=== PATIENT | female | born 1945 | race Caucasian/White ===

== ENCOUNTER → 2017-10-30 08:47 | Outpatient (CLI) | payer MEDICARE, SELFPAY ==
[2017-10-30 11:00] LABS: AST(SGOT) 16 U/L (15-37); Alanine Aminotransfer ALT/SGPT 24 U/L (13-56); Albumin, Serum 3.7 g/dL (3.2-5.0); Alkaline Phosphatase 71 U/L (45-117); Bilirubin, Direct 0.24 mg/dL (0.00-0.30); Cholesterol 119 mg/dL (200); Globulin 3.7 g/dL (2.2-4.2); High Density Lipoprotein 45 mg/dL; Protein, Total 7.4 g/dL (6.4-8.2); Triglycerides 144 mg/dL; Very Low Density Lipoprotein 29 mg/dL (5-40)
== END ==
PROVIDERS: Family Provider Family Medicine; PCP Family Medicine; Visit Provider Internal Medicine Cardiovascular Disease
DX: I48.0 Paroxysmal atrial fibrillation (principal); E11.9 Type 2 diabetes mellitus without complications; I10 Essential (primary) hypertension
CPT/HCPCS: 36415; 80061; 80076

== ENCOUNTER → 2019-02-23 09:54 | Outpatient (CLI) | payer MEDICARE, SELFPAY ==
[2019-02-23 08:44] VITALS: BMI 31.4
[2019-02-23 10:32] LABS: Anion Gap 7 (5-15); BUN 25 mg/dL (7-18); BUN/Creat Ratio 32.4 RATIO (10-20); Chloride 105 mmol/L (98-107); Creatinine, Serum 0.77 mg/dL (0.55-1.02); EST Glomerular Filtration Rate 78 mL/min (>60); Est Glom Filt Rate - Afr Amer 95 mL/min (>60); Glucose 93 mg/dL (74-106); Potassium 3.1 mmol/L (3.5-5.1); Sodium Level 143 mmol/L (136-145)
[2019-02-23 10:40] LABS: BNP,B-Type NATRIURETIC PEPTIDE 251.1 pg/mL (0-100)
== END ==
PROVIDERS: Family Provider Family Medicine; PCP Family Medicine; Referring Provider Internal Medicine Cardiovascular Disease; Visit Provider Internal Medicine Cardiovascular Disease
DX: R06.02 Shortness of breath (principal); I10 Essential (primary) hypertension
CPT/HCPCS: 36415; 80048; 83880

== ENCOUNTER → 2019-03-29 | Outpatient (CLI) | payer MEDICARE, SELFPAY ==
[2019-02-23 08:44] VITALS: BMI 31.4
--- NOTE | 2019-03-29 07:40 | ECHOD_ITS ---
Reason For Study: DYSNPNEA/SOB Procedure This was a 2D Doppler, Color Flow transthoracic echocardiogram. Exam performed in department. Left Ventricle Normal LV size. Left ventricular systolic function is lower limits of normal. The estimated ejection fraction is 50 %. No regional wall motion abnormalities noted. Right Ventricle Normal RV size. Normal systolic function. Atria Normal left atrium. Normal right atrium. Mitral Valve Normal mitral valve. Tricuspid Valve Normal tricuspid valve. Mild to moderate (1-2+) tricuspid valve insufficiency. Pulmonary artery systolic pressure is 48 mmHg. Mild pulmonary hypertension. Aortic Valve The aortic valve is not well visualized. Pulmonic Valve Normal pulmonic valve. Great Vessels Normal aortic root. The pulmonary artery is normal size. Normal inferior vena cava. Pericardium/Pleural No pericardial effusion. MMode/2D Measurements & Calculations LVIDd: 4.5 cm IVSd: 1.1 cm Ao root diam: 3.0 cm LVIDs: 3.1 cm LVPWd: 1.1 cm RVDd: 3.0 cm FS: 30.9 % LAV(MOD-bp): 40.6 ml LA A4 area: 14.7 cm2 LA dimension(2D): 3.6 cm LAV(MOD-bp) Indexed: 21.1 ml/m2 LAV(MOD-sp2): 40.4 ml LAV(MOD-sp4): 40.1 ml RA A4 area: 13.5 cm2 Time Measurements MV dec time: 0.20 sec Doppler Measurements & Calculations MV E max abundio: 111.2 cm/sec Lat Peak E' Abundio: 9.7 cm/sec Med Peak E' Abundio: 5.9 cm/sec MV A max abundio: 82.6 cm/sec E/E' lat: 11.5 E/E' med: 18.7 MV E/A: 1.3 Ao V2 max: 127.7 cm/sec LV V1 max: 73.5 cm/sec PA V2 max: 90.3 cm/sec Ao max P.5 mmHg LV V1 max P.2 mmHg TR max abundio: 325.7 cm/sec TR max P.4 mmHg Interpretation Summary Normal LV size. Left ventricular systolic function is lower limits of normal. The estimated ejection fraction is 50 %. Pulmonary artery systolic pressure is 48 mmHg. Mild pulmonary hypertension. Compared to prior study, there is no significant change. Ordering Physician: Jerzy Mon Referring Physician: Sherri Hernandez Performed By: Yennifer De Leon, ROSE, RVT
== END | disposition home or self-care (01) ==
LOC: CVS 07:39
PROVIDERS: Family Provider Family Medicine; PCP Family Medicine; Referring Provider Internal Medicine Cardiovascular Disease; Visit Provider Internal Medicine Cardiovascular Disease
DX: I48.0 Paroxysmal atrial fibrillation (principal)
CPT/HCPCS: 93306

== ENCOUNTER → 2019-05-25 | Outpatient (CLI) | payer MEDICARE, SELFPAY ==
[2019-02-23 08:44] VITALS: BMI 31.4
[2019-05-25 14:49] LABS: Absolute Lymphocyte Count 2.68 X10^3/uL (0.83-4.51); Absolute Neutrophil Count 7.2 X10^3/uL (2.0-7.7); Basophil# 0.05 X10^3/uL; Basophil% 0.4 % (0-1); Eosinophil# 0.55 X10^3/uL; Eosinophils% 4.8 % (0-5); Hematocrit 43.2 % (37-47); Hemoglobin 13.7 g/dL (12.0-15.0); Lymphocyte # 2.68 X10^3/ul (4.0); Lymphocyte % 23.2 % (19-41); Mean Corp Hgb Conc 31.7 g/dL (32-36); Mean Corpuscular Hgb 28.3 pg (27.0-32.0); Mean Corpuscular Volume 89.3 fL (81-99); Mean Platelet Vol. 10.3 fl (6.2-12.0); Monocyte# 1.02 X10^3/uL; Monocyte% 8.8 % (0-10); NRBC Flagged by Analyzer 0 % (0-5); Neutrophil # 7.22 X10^3/uL (2.7-7.7); Neutrophil % 62.5 % (47-70); Platelet Count 235 K/mm3 (150-450); RBC Distribution Width CV 13.5 % (11.6-14.6); RBC Distribution Width SD 43.9 fl (35.1-43.9); Red Blood Count 4.84 M/mm3 (4.2-5.4); White Blood Count 11.6 K/mm3 (4.4-11.0)
== END | disposition home or self-care (01) ==
LOC: LAB 13:47
PROVIDERS: Family Provider Family Medicine; PCP Family Medicine; Referring Provider Internal Medicine Pulmonary Disease; Visit Provider Internal Medicine Pulmonary Disease
DX: J44.9 Chronic obstructive pulmonary disease, unspecified (principal); G47.33 Obstructive sleep apnea (adult) (pediatric)
CPT/HCPCS: 36415; 85025

== ENCOUNTER → 2020-09-16 07:29 | Outpatient (CLI) | payer MEDICARE, SELFPAY ==
[2020-09-07 10:03] VITALS: BMI 29.0
--- NOTE | 2020-09-16 07:33 | MRI_ITS ---
STUDY: MRI BRAIN WITH AND WITHOUT CONTRAST REASON FOR EXAM: Female, 75 years old. BENIGN MENINGIOMA -- recheck, no new symptoms, occasional davis TECHNIQUE: Standardized multiplanar fat and water weighted pulse sequences were obtained. Dotarem 15ml IV was administered for the contrast portion of the examination. COMPARISON: CT head without contrast 03/30/2015. FINDINGS: No restricted diffusion to suspect acute or subacute ischemic infarct. Solid enhancing meningioma behind the left parieto-occipital fissure. It is adjacent the posterior superior sagittal sinus without invasion obliteration of the patent superior sagittal sinus. No vasogenic edema of the adjacent brain parenchyma. Normal ventricles and cisterns. Scattered T2 FLAIR hyperintensity foci in the white matter of both cerebral hemispheres are chronic white matter ischemic changes.. Normal bilateral basal ganglia. Normal thalami. There is no extra-axial fluid accumulation. Normal flow voids within the major intracranial circulation suggesting patency by spin echo criteria. Normal venous enhancement. There is no enhancing intra-axial or extra-axial abnormality. Normal sella turcica, pituitary gland, infundibular stalk, optic chiasm and hypothalamus. Normal tectal plate and pineal gland. Normal midbrain, rosemarie and medulla. Normal cerebellum. Normal basal cisterns. Normal bilateral temporal bones. Normal bilateral internal auditory canals. No demonstrated orbital abnormality, within the constraints of a routine brain study. Normal visualized paranasal sinuses. Normal calvarium and skull base. Normal visualized soft tissue structures. Normal visualized upper cervical spine. MRI/Brain W/WO Contrast IMPRESSION: 1. 1.3 x 1.2 x 1.2 cm solid enhancing left posterior parafalcine meningioma near the left parieto-occipital fissure and without compromise or obliteration of the patent adjacent superior sagittal sinus. 2. Chronic white matter ischemic changes in both cerebral hemispheres. Electronically Signed: Ad Renae MD at 12:00 EST , Service support ,
[2020-09-16 08:26] LABS: Creatinine, Serum 1.04 mg/dL (0.55-1.02); EST Glomerular Filtration Rate 55 mL/min (>60); Est Glom Filt Rate - Afr Amer 67 mL/min (>60)
[2020-09-18 20:07] LABS: Free Kappa Light Chains 18.2 mg/L (3.3-19.4); Free Lambda Light Chains 20.5 mg/L (5.7-26.3)
== END ==
PROVIDERS: PCP Family Medicine; Referring Provider Psychiatry & Neurology Neurology; Visit Provider Psychiatry & Neurology Neurology
DX: D32.0 Benign neoplasm of cerebral meninges (principal); Z87.820 Personal history of traumatic brain injury; G62.9 Polyneuropathy, unspecified
CPT/HCPCS: 36415; 70553; 82565; 82746; 83883; A9575

== ENCOUNTER → 2021-03-30 09:14 | Outpatient (CLI) | payer MEDICARE, SELFPAY ==
[2021-03-30 08:27] VITALS: BMI 25.0
--- NOTE | 2021-03-30 09:18 | RAD_ITS ---
STUDY: X-RAY CHEST REASON FOR EXAM: Female, 76 years old. SOB TECHNIQUE: PA and lateral views of the chest. COMPARISON: 10/17/2015 FINDINGS: The lungs are clear and expanded. There is no demonstrated pleural abnormality. Normal size heart. Normal mediastinum and amrit. Normal visualized pulmonary arteries. Normal visualized aortic arch and descending thoracic aorta. Normal visualized thoracic spine. Normal visualized ribs, clavicles, and shoulders. There is no demonstrated abnormality of the visualized soft tissue structures of the upper abdomen. RAD/Chest PA and Lateral IMPRESSION: Normal x-ray examination of the chest. Electronically Signed: Andre Yeboah MD at 10:49 EDT Tel , Service support ,
[2021-03-30 10:09] LABS: Absolute Lymphocyte Count 1.36 X10^3/uL (0.83-4.51); Absolute Neutrophil Count 6.1 X10^3/uL (2.0-7.7); Basophil# 0.04 X10^3/uL; Basophil% 0.5 % (0-1); Eosinophil# 0.63 X10^3/uL; Eosinophils% 7.1 % (0-5); Hemoglobin 10.3 g/dL (12.0-15.0); Lymphocyte # 1.36 X10^3/ul (0.83-4.51); Lymphocyte % 15.3 % (19-41); Mean Corp Hgb Conc 29.4 g/dL (32-36); Mean Corpuscular Hgb 25.2 pg (27.0-32.0); Mean Corpuscular Volume 85.8 fL (81-99); Mean Platelet Vol. 9.8 fl (6.2-12.0); Monocyte# 0.72 X10^3/uL; Monocyte% 8.1 % (0-10); NRBC Flagged by Analyzer 0 % (0-5); Neutrophil % 68.8 % (47-70); Platelet Count 259 K/mm3 (150-450); RBC Distribution Width CV 15.6 % (11.6-14.6); RBC Distribution Width SD 48.7 fl (35.1-43.9); Red Blood Count 4.08 M/mm3 (4.2-5.4); White Blood Count 8.9 K/mm3 (4.4-11.0)
[2021-03-30 10:31] LABS: BNP,B-Type NATRIURETIC PEPTIDE 263.9 pg/mL (0-100)
[2021-03-30 10:51] LABS: Anion Gap 7 (5-15); BUN 16 mg/dL (7-18); BUN/Creat Ratio 20.5 RATIO (10-20); Calcium,Total 8.7 mg/dL (8.5-10.1); Chloride 107 mmol/L (98-107); Creatinine, Serum 0.78 mg/dL (0.55-1.02); EST Glomerular Filtration Rate 77 mL/min (>60); Est Glom Filt Rate - Afr Amer 93 mL/min (>60); Glucose 83 mg/dL (74-106); Potassium 4.1 mmol/L (3.5-5.1); Sodium Level 140 mmol/L (136-145)
== END ==
PROVIDERS: PCP Family Medicine; Referring Provider Nurse Practitioner Family; Visit Provider Nurse Practitioner Family
DX: R05 Cough (principal); R06.00 Dyspnea, unspecified; E78.5 Hyperlipidemia, unspecified; I48.0 Paroxysmal atrial fibrillation; I10 Essential (primary) hypertension
CPT/HCPCS: 36415; 71046; 80048; 83880; 85025

== ENCOUNTER 2021-04-13 11:50 | Observation (INO) | payer MEDICARE, SELFPAY ==
[2021-04-10 13:57] VITALS: BMI 25.0
[2021-04-13] VITALS (18 sets, daily range): BP systolic 122–165; BP diastolic 60–107; PULSE 92–144; RESP 16–24; TEMP 36.6–37.1; O2SAT 88–99; BMI 25.4; BMI 25.7
--- NOTE | 2021-04-13 12:07 | EKG12_ITS ---
Test Reason : SOB Blood Pressure : / mmHG Vent. Rate : 092 BPM Atrial Rate : 153 BPM P-R Int : 000 ms QRS Dur : 080 ms QT Int : 380 ms P-R-T Axes : 000 063 046 degrees QTc Int : 469 ms Atrial fibrillation Low voltage QRS Abnormal ECG Confirmed by KEV MATA, NAZIA ([id number]), continuity editor SULEMA DRAKE ([id number]) on 04/16/2021 9:51:45 AM Referred By: MARQUIS Confirmed By:VICKY ANGULO MD
--- NOTE | 2021-04-13 12:07 | RAD_ITS ---
STUDY: X-RAY CHEST REASON FOR EXAM: Female, 76 years old. Dyspnea TECHNIQUE: Single AP portable view of the chest. COMPARISON: Comparison is made with prior study dated 03/30/2021. FINDINGS: EKG electrodes are seen. Mild degree of increased interstitial markings in the peripheral aspect of the lower lobes. This may represent mild interstitial edema. Follow-up is recommended. There is no demonstrated pleural abnormality. Normal size heart. Normal mediastinum and amrit. Normal visualized pulmonary arteries. There is atherosclerotic calcification of the aortic arch with tortuosity. Normal visualized thoracic spine. Normal visualized ribs, clavicles, and shoulders. There is no demonstrated abnormality of the visualized soft tissue structures of the upper abdomen. RAD/Chest 1 View (Portable) IMPRESSION: Findings suggestive of mild CHF. Electronically Signed: Cody Wong MD at 13:09 EDT , Service support ,
--- NOTE | 2021-04-13 12:08 | ED.VIS.DYS ---
HPI History of Present Illness Chief Complaint: Shortness of Breath Informant: patient and spouse/S.O. Narrative Narrative: 76-year-old female with history of COPD diabetes and paroxysmal atrial fibrillation presents the emergency room with 3 days duration of worsening dyspnea. She notes a change in cough with yellow sputum production which is different. She notes her dyspnea is worse with exertion. She chronically wears 2 L of home oxygen. She recently began Eliquis anticoagulation for her A. fib. She denies any fever. She notes a tightness in the chest. [facility] Medical History COPD (chronic obstructive pulmonary disease) Essential (primary) hypertension Hyperlipidemia Hypothyroidism Meningioma Obesity Obstructive sleep apnea Paroxysmal atrial fibrillation Secondary pulmonary arterial hypertension Subdural hematoma (2014) Thyroid cancer Type 2 diabetes mellitus Home Medications metformin 1,000 mg PO BIDCM 07/03/14 [History Last Taken 10/16/15] albuterol sulfate 1 puff INHALATION Q4H PRN PRN #1 inhaler 07/05/14 [Rx Last Taken Unknown] magnesium oxide 400 mg PO BID 02/06/15 [History Last Taken 10/16/15] levothyroxine 75 mcg PO DAILY@0600 #30 tab 02/28/15 [Rx Last Taken 10/16/15] aspirin 81 mg PO DAILY@0800 10/17/15 [History Last Taken 10/16/15] glipizide 5 mg tablet, extended release 24 hr 5 mg PO QDAY 12/19/17 [History Last Taken Unknown] atorvastatin 10 mg tablet 10 mg PO QHS #90 tab 06/22/18 [Rx Last Taken Unknown] amlodipine 10 mg tablet 10 mg PO DAILY 02/23/19 [History Last Taken Unknown] escitalopram oxalate 10 mg tablet 10 mg PO DAILY 02/29/20 [History Last Taken Unknown] albuterol sulfate 2.5 mg CONTINUOUS NEBULIZATION DAILY ml 09/07/20 [History Last Taken Unknown] azithromycin 250 mg tablet 250 mg PO DAILY tab 09/07/20 [History Last Taken Unknown] fluticasone furoate 200 mcg-vilanterol 25 mcg/dose inhalation powder 1 inh INHALATION DAILY 09/07/20 [History Last Taken Unknown] roflumilast 500 mcg tablet 500 mcg PO DAILY 09/07/20 [History Last Taken Unknown] tiotropium bromide 2.5 mcg/actuation mist for inhalation 2 inh INHALATION QAM 09/07/20 [History Last Taken Unknown] potassium chloride 20 mEq tablet,extended release 20 meq PO DAILY #90 tab 02/28/21 [Rx Last Taken Unknown] furosemide 40 mg tablet 40 mg PO DAILY #30 tab 03/30/21 [Rx Last Taken Unknown] apixaban 2.5 mg tablet 2.5 mg PO BID #60 tab 04/09/21 [Rx Last Taken Unknown] metoprolol tartrate 50 mg tablet 50 mg PO BID tab 04/09/21 [History Last Taken Unknown] cyanocobalamin (vitamin B-12) 2,500 mcg sublingual tablet 2,500 mcg PO DAILY tab 04/10/21 [History Last Taken Unknown] ergocalciferol (vitamin D2) 1,250 mcg (50,000 unit) capsule 1,250 mcg PO QWEEK cap 04/10/21 [History Last Taken Unknown] ferrous sulfate 325 mg (65 mg iron) tablet 325 mg PO DAILY tab 04/10/21 [History Last Taken Unknown] primidone 50 mg tablet 50 mg PO BID #60 tab 04/10/21 [Rx Last Taken Unknown] Allergy/AdvReac Type Severity Reaction Status Date / Time ceftriaxone sodium Allergy Hives Verified 04/13/21 11:51 [From Rocephin] doxycycline AdvReac Intermediate nausea Verified 04/13/21 11:51 codeine AdvReac Nausea Verified 04/13/21 11:51 Family History Brother Diabetes Brother Heart disease Brother Diabetes Heart disease Sister Heart disease Diabetes CVA (cerebral vascular accident) Surgical History History of cataract extraction History of subtotal thyroidectomy Hx of cholecystectomy Social History Smoking Status: Former smoker pack-years: 40 how long ago did patient quit smokin years ago alcohol intake: never substance use type: does not use caffeine: Yes Type: carbonated beverages Number of servings: 1 and tea Number of servings: 1 ROS ROS ED Constitutional Constitutional ED: Denies chills or weight loss Eyes Eyes: Denies change in vision or diplopia ENT ENT ED: Denies ear pain, rhinorrhea or sore throat Cardiovascular Cardiovascular: Denies chest pain, orthopnea, palpitations or racing heartbeat Respiratory/Chest Respiratory/Chest: Reports cough, dyspnea, dyspnea on exertion and sputum; Denies orthopnea Gastrointestinal Gastrointestinal: Denies abdominal pain, diarrhea, nausea or vomiting Genitourinary Genitourinary ED: Denies dysuria, hematuria or urinary frequency Musculoskeletal Musculoskeletal: Denies arthralgias or myalgias Integumentary Denies abscess or rash Neurologic Neurologic: Denies headache(s) or weakness Psychiatric Psychiatric: Denies anxiety, depression, suicidal ideation or suicidal thoughts Endocrine Endocrinology: Denies polydipsia, polyphagia or polyuria Allergic/Immunologic Allergic/Immunologic ED: Denies mouth swelling, tongue swelling or urticaria EXAM Physical Exam Const Vital Signs: 04/13/21 11:53 04/13/21 11:55 04/13/21 12:03 Temperature 97.8 F 97.8 F Temperature Source Temporal Temporal Pulse Rate 93 93 Respiratory Rate 22 H 22 H Respiratory Effort Short of Breath Labored Blood Pressure 165/91 H 165/91 H Blood Pressure Mean 115 115 Pulse Ox 95 95 Oxygen Delivery Method Nasal Cannula Nasal Cannula Nasal Cannula Oxygen Flow Rate (L/min) 2 2 04/13/21 12:41 04/13/21 12:55 04/13/21 13:01 Temperature 98 F Temperature Source Temporal Pulse Rate 93 96 92 Respiratory Rate 20 H 20 H 21 H Respiratory Effort Short of Breath Labored Accessory Muscle Use Retracting Blood Pressure 148/107 H Blood Pressure Mean 120 Pulse Ox 96 96 Oxygen Delivery Method Nasal Cannula Nasal Cannula Oxygen Flow Rate (L/min) 2 04/13/21 13:09 04/13/21 13:51 04/13/21 13:52 Temperature Temperature Source Pulse Rate 104 H 144 H Respiratory Rate Respiratory Effort Blood Pressure Blood Pressure Mean Pulse Ox 96 94 88 Oxygen Delivery Method Nasal Cannula Nasal Cannula Nasal Cannula Oxygen Flow Rate (L/min) 2 2 04/13/21 13:53 Temperature 98.7 F Temperature Source Temporal Pulse Rate 113 H Respiratory Rate 16 Respiratory Effort Blood Pressure 147/90 H Blood Pressure Mean 109 Pulse Ox 93 Oxygen Delivery Method Nasal Cannula Oxygen Flow Rate (L/min) 2 Positive well nourished and well developed General Appearance ED: well developed HEENT Reports normocephalic, head/scalp atraumatic and moist mucous membranes Eyes PERRL and EOMs intact bilaterally Neck no lymphadenopathy, supple and no JVD Resp normal respiratory effort Auscultation: wheezes and diminished lung sounds Cardio regular rate, regular rhythm and no murmurs GI normal to inspection, nondistended, normoactive bowel sounds and non-tender Palpation: soft Back/Spine no CVA tenderness and normal ROM Extremity normal to inspection General Extremety ED: Negative for edema General Extremity: Negative for edema Neuro oriented x3 and CN's II-XII intact bilaterally Sensorium / Orientation: alert Motor Exam: strength 5/5 throughout Psych mental status grossly normal Mood & Affect: Negative for depressed or tearful Skin no rashes or lesions noted and no wounds MDM MDM MDM Narrative Medical decision making narrative: Basic blood work was negative. My interpretation of the chest x-ray is no acute process. No infiltrate seen. Patient received 3 nebulizers and Solu-Medrol. Repeat examination shows slightly improved aeration of the lungs. With ambulation on 2 L she becomes tachycardic tachypneic and oxygen levels dropped to 88%. At this point I will speak with the hospitalist regarding admission Lab Data Attestation: I reviewed the patient's lab results. Labs: Laboratory Results - last 24 hr 04/13/21 04/13/21 04/13/21 12:20 12:20 12:20 WBC 7.3 RBC 3.77 L Hgb 9.6 L Hct 32.6 L MCV 86.5 MCH 25.5 L MCHC 29.4 L RDW Std Deviation 51.6 H RDW Coeff of Malik 16.9 H Plt Count 214 MPV 9.7 Immature Gran % (Auto) 0.400 Neut % (Auto) 74.8 H Lymph % (Auto) 11.7 L [place] % (Auto) 8.5 Eos % (Auto) 4.0 Baso % (Auto) 0.6 Absolute Neuts (auto) 5.4 Absolute Lymphs (auto) 0.85 Nucleated RBC % 0 Sodium 138 Potassium 4.7 Chloride 105 Carbon Dioxide 26.0 Anion Gap 7 BUN 15 Creatinine 0.82 Estim Creat Clear Calc 54.16 Est GFR (MDRD) Af Amer 87 Est GFR (MDRD) Non-Af 72 BUN/Creatinine Ratio 18.2 Glucose 103 Calcium 8.7 Troponin I High Sens 4.2 Radiography Diagnostic Testing: Radiology Impression Chest X-Ray 04/13/21 12:07 IMPRESSION: Findings suggestive of mild CHF. Electronically Signed: Cody Wong MD at 13:09 EDT , Service support , EKG Initial EKG: Attestation: I personally reviewed and interpreted this EKG as follows: Comments: EKG demonstrates atrial fibrillation at a rate of 92 bpm. No concerning features of ACS or ectopy Discharge Plan Dx/Rx/DC Orders Clinical Impression: Acute exacerbation of chronic obstructive pulmonary disease, Acute and chronic respiratory failure with hypoxia Disposition Disposition: Acute Care Hospital [facility]
[2021-04-13] MEDS: Ipratropium/Albuterol Sulfate 3 ML AMPUL.NEB INHALATION ×2 (12:27→19:45)
[2021-04-13] MEDS: MethylPREDNISolone 125 MG/2 ML Vial IV (12:30)
[2021-04-13] MEDS: Albuterol 2.5 MG/3 ML VIAL.NEB. INHALATION ×2 (12:34→13:00)
[2021-04-13 12:35] LABS: Absolute Lymphocyte Count 0.85 X10^3/uL (0.83-4.51); Absolute Neutrophil Count 5.4 X10^3/uL (2.0-7.7); Basophil# 0.04 X10^3/uL; Basophil% 0.6 % (0-1); Eosinophil# 0.29 X10^3/uL; Hematocrit 32.6 % (37-47); Hemoglobin 9.6 g/dL (12.0-15.0); Lymphocyte # 0.85 X10^3/ul (0.83-4.51); Lymphocyte % 11.7 % (19-41); Mean Corp Hgb Conc 29.4 g/dL (32-36); Mean Corpuscular Hgb 25.5 pg (27.0-32.0); Mean Corpuscular Volume 86.5 fL (81-99); Mean Platelet Vol. 9.7 fl (6.2-12.0); Monocyte# 0.62 X10^3/uL; Monocyte% 8.5 % (0-10); NRBC Flagged by Analyzer 0 % (0-5); Neutrophil # 5.44 X10^3/uL (2.7-7.7); Neutrophil % 74.8 % (47-70); Platelet Count 214 K/mm3 (150-450); RBC Distribution Width CV 16.9 % (11.6-14.6); RBC Distribution Width SD 51.6 fl (35.1-43.9); Red Blood Count 3.77 M/mm3 (4.2-5.4); White Blood Count 7.3 K/mm3 (4.4-11.0)
[2021-04-13 12:50] LABS: Troponin-I HS 4.2 pg/mL (3.0-53.7)
[2021-04-13 13:38] LABS: Anion Gap 7 (5-15); BUN 15 mg/dL (7-18); BUN/Creat Ratio 18.2 RATIO (10-20); Calcium,Total 8.7 mg/dL (8.5-10.1); Chloride 105 mmol/L (98-107); Creatinine, Serum 0.82 mg/dL (0.55-1.02); EST Glomerular Filtration Rate 72 mL/min (>60); Est Glom Filt Rate - Afr Amer 87 mL/min (>60); Estimated Creatinine Clearance 54.16 ml/min; Glucose 103 mg/dL (74-106); Potassium 4.7 mmol/L (3.5-5.1); Sodium Level 138 mmol/L (136-145)
--- NOTE | 2021-04-13 15:11 | HP.PCM.HOS_ITS ---
Documented by User: Angelica Cardenas NP, EDUCATION RESEARCH ANALYST-C 04/13/21 15:32 HPI - General General Date of Admission: 04/13/21 Date of Service: 04/13/21 Chief Complaint: shortness of breath HPI Narrative IRVING NEELY, is a 76 F who presents to the emergency room due to shortness of breath. Patient reports worsening shortness of breath over the past 3 days. Patient denies upper respiratory symptoms. Denies cough, fever, chills. Patient does note she is not able to lie flat due to worsening shortness of breath. Also reports worsening shortness of breath with activity. She chronically wears 2 L nasal cannula at home. She reports intermittent lower extremity swelling. Denies known weight gain. She has a past medical history of hypertension, type 2 diabetes mellitus, ISABEL on CPAP, paroxysmal atrial fibrillation, hypothyroidism, COPD with chronic hypoxic respiratory failure, depression, essential tremors. [facility] Medical History (Updated 04/13/21 @ 14:14 by Audrey Lewis) Anxiety Atrial fibrillation Chest pain COPD (chronic obstructive pulmonary disease) CPAP (continuous positive airway pressure) dependence Depression Diabetes Essential (primary) hypertension Former smoker GERD (gastroesophageal reflux disease) Hyperlipidemia Hypertension Hypothyroidism Meningioma Obesity Obstructive sleep apnea On home oxygen therapy Paroxysmal atrial fibrillation Secondary pulmonary arterial hypertension Sleep apnea Stroke/cerebrovascular accident Subdural hematoma (2014) Thyroid cancer Type 2 diabetes mellitus Home Medications metformin 1,000 mg PO BIDCM 07/03/14 [History Last Taken 04/13/21] albuterol sulfate 1 puff INHALATION Q4H PRN PRN #1 inhaler 07/05/14 [Rx Last Taken 04/13/21] magnesium oxide 400 mg PO QHS 02/06/15 [History Last Taken 04/12/21] aspirin 81 mg PO DAILY@0800 10/17/15 [History Last Taken 04/13/21] glipizide 5 mg tablet, extended release 24 hr 5 mg PO QDAY 12/19/17 [History L ast Taken 04/13/21] amlodipine 10 mg tablet 10 mg PO DAILY 02/23/19 [History Last Taken 04/13/21] escitalopram oxalate 10 mg tablet 10 mg PO DAILY 02/29/20 [History Last Taken 04/13/21] albuterol sulfate 2.5 mg CONTINUOUS NEBULIZATION DAILY ml 09/07/20 [History Last Taken 04/12/21] azithromycin 250 mg tablet 250 mg PO DAILY tab 09/07/20 [History Last Taken 04/13/21] fluticasone furoate 200 mcg-vilanterol 25 mcg/dose inhalation powder 1 inh INHALATION DAILY 09/07/20 [History Last Taken 04/13/21] roflumilast 500 mcg tablet 500 mcg PO QHS 09/07/20 [History Last Taken 04/12/21] tiotropium bromide 2.5 mcg/actuation mist for inhalation 2 inh INHALATION QAM 09/07/20 [History Last Taken 04/13/21] apixaban 2.5 mg tablet 2.5 mg PO BID #60 tab 04/09/21 [Rx Last Taken 04/13/21] metoprolol tartrate 50 mg tablet 50 mg PO DAILY tab 04/09/21 [History Last Taken 04/13/21] cyanocobalamin (vitamin B-12) 2,500 mcg sublingual tablet 2,500 mcg PO QHS tab 04/10/21 [History Last Taken 04/12/21] ergocalciferol (vitamin D2) 1,250 mcg (50,000 unit) capsule 1,250 mcg PO WE cap 04/10/21 [History Last Taken 04/11/21] ferrous sulfate 325 mg (65 mg iron) tablet 325 mg PO DAILY tab 04/10/21 [History Last Taken 04/13/21] atorvastatin 10 mg PO QHS 04/13/21 [History Last Taken 04/12/21] furosemide [Lasix] 40 mg PO DAILY 04/13/21 [History Last Taken 04/13/21] levothyroxine 75 mcg PO DAILY@0600 04/13/21 [History Last Taken 04/13/21] metoprolol tartrate 25 mg PO QHS 04/13/21 [History Last Taken 04/12/21] potassium chloride 20 meq PO DAILY 04/13/21 [History Last Taken 04/12/21] primidone 50 mg PO BID 04/13/21 [History Last Taken 04/13/21] Allergy/AdvReac Type Severity Reaction Status Date / Time ceftriaxone sodium Allergy Hives Verified 04/13/21 11:51 [From Rocephin] doxycycline AdvReac Intermediate nausea Verified 04/13/21 11:51 codeine AdvReac Nausea Verified 04/13/21 11:51 Family History (Updated 04/13/21 @ 15:17 by Angelica Cardenas NP, EDUCATION RESEARCH ANALYST-C) Brother Diabetes Brother Heart disease Brother Diabetes Heart disease Sister Heart disease Diabetes CVA (cerebral vascular accident) Mother COPD (chronic obstructive pulmonary disease) Father Heart disease Surgical History History of cataract extraction History of subtotal thyroidectomy Hx of cholecystectomy Social History Smoking Status: Former smoker pack-years: 40 how long ago did patient quit smokin years ago alcohol intake: never substance use type: does not use caffeine: Yes Type: carbonated beverages Number of servings: 1 and tea Number of servings: 1 ROS Constitutional Constitutional: Denies change in weight, chills, fatigue, fever(s) or weakness Cardiovascular Cardiovascular: Denies chest pain, edema, lightheadedness, palpitations or sync ope Respiratory/Chest Respiratory/Chest: Reports dyspnea, shortness of breath at rest and wheezing; Denies cough or productive cough Gastrointestinal Gastrointestinal: Denies abdominal pain, constipation, diarrhea, nausea or vomit ing Genitourinary Genitourinary: Denies burning urination, difficulty urinating, dysuria, hematuria, urinary frequency, urinary incontinence or urinary urgency Musculoskeletal Musculoskeletal: Denies back pain, joint pain or muscle weakness Integumentary Integumentary: Denies erythema, lesions, rash or wounds Neurologic Neurologic: Denies abnormal speech, confusion, dizziness, focal weakness, numbness, paresthesias, seizure-like activity or syncope Psychiatric Psychiatric: Denies anxiety or depression Hematologic/Lymphatic Hematologic/Lymphatic: Denies anemia, easy bleeding or easy bruising Allergic/Immunologic Allergic/Immunologic: Denies hives or asthma Vital Signs Vital Signs Vital Signs: 04/13/21 11:53 04/13/21 11:55 04/13/21 12:03 Temperature 97.8 F 97.8 F Temperature Source Temporal Temporal Pulse Rate 93 93 Respiratory Rate 22 H 22 H Respiratory Effort Short of Breath Labored Blood Pressure 165/91 H 165/91 H Blood Pressure Mean 115 115 Blood Pressure Source Blood Pressure Position Blood Pressure Location Pulse Ox 95 95 Oxygen Delivery Method Nasal Cannula Nasal Cannula Nasal Cannula Oxygen Flow Rate (L/min) 2 2 04/13/21 12:41 04/13/21 12:55 04/13/21 13:01 Temperature 98 F Temperature Source Temporal Pulse Rate 93 96 92 Respiratory Rate 20 H 20 H 21 H Respiratory Effort Short of Breath Labored Accessory Muscle Use Retracting Blood Pressure 148/107 H Blood Pressure Mean 120 Blood Pressure Source Blood Pressure Position Blood Pressure Location Pulse Ox 96 96 Oxygen Delivery Method Nasal Cannula Nasal Cannula Oxygen Flow Rate (L/min) 2 04/13/21 13:09 04/13/21 13:51 04/13/21 13:52 Temperature Temperature Source Pulse Rate 104 H 144 H Respiratory Rate Respiratory Effort Blood Pressure Blood Pressure Mean Blood Pressure Source Blood Pressure Position Blood Pressure Location Pulse Ox 96 94 88 Oxygen Delivery Method Nasal Cannula Nasal Cannula Nasal Cannula Oxygen Flow Rate (L/min) 2 2 04/13/21 13:53 04/13/21 14:19 04/13/21 14:46 Temperature 98.7 F 98.7 F 98.4 F Temperature Source Temporal Temporal Oral Pulse Rate 113 H 111 H 110 H Respiratory Rate 16 20 H 21 H Respiratory Effort Blood Pressure 147/90 H 165/60 H 144/93 H Blood Pressure Mean 109 95 110 Blood Pressure Source Monitor Blood Pressure Position Sitting Blood Pressure Location Right Arm Pulse Ox 93 94 94 Oxygen Delivery Method Nasal Cannula Nasal Cannula Nasal Cannula Oxygen Flow Rate (L/min) 2 2 Weight Weight: 154 lb 15.759 oz Body Mass Index (BMI) 25.7 Physical Exam Const alert, oriented x3 and no apparent distress Orientation / Consciousness: awake, oriented to person, oriented to place and oriented to time HEENT normocephalic and moist oral mucous membranes Eyes PERRL, EOMs intact bilaterally and conjunctivae normal Neck no lymphadenopathy Resp Auscultation: wheezes and diminished lung sounds Cardio regular rate, regular rhythm and no murmurs Peripheral Pulses: pulses 2+ throughout GI normal to inspection, nondistended, normoactive bowel sounds, non-tender and non -distended Extremity normal to inspection Skin no rashes or lesions noted Lesions: no lesions Rashes: no rashes Trauma: no lacerations or abrasions Neuro CN's II-XII intact bilaterally, no focal motor deficits, no sensory deficits noted and deep tendon reflexes 2+ bilaterally Psych mental status grossly normal and affect normal Results Lab / Micro Data Result Diagrams: 04/13/21 12:20 04/13/21 12:20 Labs: Laboratory Results - last 24 hr 04/13/21 12:20: WBC 7.3, RBC 3.77 L, Hgb 9.6 L, Hct 32.6 L, MCV 86.5, MCH 25.5 L , MCHC 29.4 L, RDW Std Deviation 51.6 H, RDW Coeff of Malik 16.9 H, Plt Count 214, MPV 9.7, Immature Gran % (Auto) 0.400, Neut % (Auto) 74.8 H, Lymph % (Auto) 11.7 L, [place] % (Auto) 8.5, Eos % (Auto) 4.0, Baso % (Auto) 0.6, Absolute Neuts (auto) 5.4, Absolute Lymphs (auto) 0.85, Nucleated RBC % 0 04/13/21 12:20: Troponin I High Sens 4.2 04/13/21 12:20: Sodium 138, Potassium 4.7, Chloride 105, Carbon Dioxide 26.0, Anion Gap 7, BUN 15, Creatinine 0.82, Estim Creat Clear Calc 54.16, Est GFR (MDRD) Af Amer 87, Est GFR (MDRD) Non-Af 72, BUN/Creatinine Ratio 18.2, Glucose 103, Calcium 8.7 Radiology Impression Chest X-Ray 04/13/21 12:07 IMPRESSION: Findings suggestive of mild CHF. Electronically Signed: Cody Wong MD at 13:09 EDT , Service support , Assessment & Plan Assessment/Plan (1) Acute exacerbation of chronic obstructive pulmonary disease: PLAN: 1. Acute exacerbation of chronic COPD with chronic hypoxic respiratory failure-on 2 L nasal cannula at baseline. Respiratory panel pending. IV Solu-Medrol. Albuterol and DuoNeb aerosols. Continue supplement oxygen to maintain O2 at or above 90%. Walking pulse ox prior to discharge. 2. Possible component of CHF-patient reports orthopnea. Chest x-ray shows mild CHF. BNP pending. Continue home Lasix regimen for now, if BNP is significantly elevated consider IV Lasix. Echocardiogram 2018 demonstrated an EF of 50%, pulmonary artery systolic pressure 48 mmHg. 3. Hypertension-stable, continue amlodipine, metoprolol. 4. Type 2 diabetes [id number] with sliding scale insulin. Continue oral regimen. 5. ISABEL on CPAP 6. Paroxysmal atrial fibrillation-on Eliquis, metoprolol. 7. Hypothyroidism-continue Synthroid regimen. 8. Depression-on escitalopram. 9. Essential tremors-following with neurology. DVT prophylaxis- Eliquis CODE STATUS: Discussed with patient differences between full code, DNR CCA and DNR CC. Patient elects DNR CCA CODE STATUS and does not want compressions or intubation. This patient was seen by FRANCIS Bailon under the supervision of Dr. Lee. Documented by User: Dr. Arturo Lee, DO 04/13/21 18:50 HPI - General General Date of Admission: 04/13/21 [facility] Medical History (Updated 04/13/21 @ 14:14 by Audrey Lewis) Anxiety Atrial fibrillation Chest pain COPD (chronic obstructive pulmonary disease) CPAP (continuous positive airway pressure) dependence Depression Diabetes Essential (primary) hypertension Former smoker GERD (gastroesophageal reflux disease) Hyperlipidemia Hypertension Hypothyroidism Meningioma Obesity Obstructive sleep apnea On home oxygen therapy Paroxysmal atrial fibrillation Secondary pulmonary arterial hypertension Sleep apnea Stroke/cerebrovascular accident Subdural hematoma (2014) Thyroid cancer Type 2 diabetes mellitus Home Medications metformin 1,000 mg PO BIDCM 07/03/14 [History Last Taken 04/13/21] albuterol sulfate 1 puff INHALATION Q4H PRN PRN #1 inhaler 07/05/14 [Rx Last Taken 04/13/21] magnesium oxide 400 mg PO QHS 02/06/15 [History Last Taken 04/12/21] aspirin 81 mg PO DAILY@0800 10/17/15 [History Last Taken 04/13/21] glipizide 5 mg tablet, extended release 24 hr 5 mg PO QDAY 12/19/17 [History Last Taken 04/13/21] amlodipine 10 mg tablet 10 mg PO DAILY 02/23/19 [History Last Taken 04/13/21] escitalopram oxalate 10 mg tablet 10 mg PO DAILY 02/29/20 [History Last Taken 04/13/21] albuterol sulfate 2.5 mg CONTINUOUS NEBULIZATION DAILY ml 09/07/20 [History Last Taken 04/12/21] azithromycin 250 mg tablet 250 mg PO DAILY tab 09/07/20 [History Last Taken 04/13/21] fluticasone furoate 200 mcg-vilanterol 25 mcg/dose inhalation powder 1 inh INHALATION DAILY 09/07/20 [History Last Taken 04/13/21] roflumilast 500 mcg tablet 500 mcg PO QHS 09/07/20 [History Last Taken 04/12/21] tiotropium bromide 2.5 mcg/actuation mist for inhalation 2 inh INHALATION QAM 09/07/20 [History Last Taken 04/13/21] apixaban 2.5 mg tablet 2.5 mg PO BID #60 tab 04/09/21 [Rx Last Taken 04/13/21] metoprolol tartrate 50 mg tablet 50 mg PO DAILY tab 04/09/21 [History Last Taken 04/13/21] cyanocobalamin (vitamin B-12) 2,500 mcg sublingual tablet 2,500 mcg PO QHS tab 04/10/21 [History Last Taken 04/12/21] ergocalciferol (vitamin D2) 1,250 mcg (50,000 unit) capsule 1,250 mcg PO WE cap 04/10/21 [History Last Taken 04/11/21] ferrous sulfate 325 mg (65 mg iron) tablet 325 mg PO DAILY tab 04/10/21 [History Last Taken 04/13/21] atorvastatin 10 mg PO QHS 04/13/21 [History Last Taken 04/12/21] furosemide [Lasix] 40 mg PO DAILY 04/13/21 [History Last Taken 04/13/21] levothyroxine 75 mcg PO DAILY@0600 04/13/21 [History Last Taken 04/13/21] metoprolol tartrate 25 mg PO QHS 04/13/21 [History Last Taken 04/12/21] potassium chloride 20 meq PO DAILY 04/13/21 [History Last Taken 04/12/21] primidone 50 mg PO BID 04/13/21 [History Last Taken 04/13/21] Allergy/AdvReac Type Severity Reaction Status Date / Time ceftriaxone sodium Allergy Hives Verified 04/13/21 11:51 [From Rocephin] doxycycline AdvReac Intermediate nausea Verified 04/13/21 11:51 codeine AdvReac Nausea Verified 04/13/21 11:51 Family History (Updated 04/13/21 @ 15:17 by Angelica Cardenas EDUCATION RESEARCH ANALYST, EDUCATION RESEARCH ANALYST-C) Brother Diabetes Brother Heart disease Brother Diabetes Heart disease Sister Heart disease Diabetes CVA (cerebral vascular accident) Mother COPD (chronic obstructive pulmonary disease) Father Heart disease Surgical History (Reviewed 04/13/21 @ 15:17 by Angelica Cardenas EDUCATION RESEARCH ANALYST, EDUCATION RESEARCH ANALYST-C) History of cataract extraction History of subtotal thyroidectomy Hx of cholecystectomy Social History (Reviewed 04/13/21 @ 15:17 by Angelica Cardenas EDUCATION RESEARCH ANALYST, EDUCATION RESEARCH ANALYST-C) Smoking Status: Former smoker pack-years: 40 how long ago did patient quit smokin years ago alcohol intake: never substance use type: does not use caffeine: Yes Type: carbonated beverages Number of servings: 1 and tea Number of servings: 1 Results Lab / Micro Data Result Diagrams: 04/13/21 12:20 04/13/21 12:20 Charges/Coding Addendum Addendum: Patient was seen and examined today independently of Angelica Cardenas, she came to the ER today at [facility] with complaints of shortness of breath, she denies any fevers or chills. Work-up in the emergency room included a chest x-ray which indicated changes suggestive of CHF, patient's white blood cell count was normal, and her chemistry profile was unremarkable. Patient had a beta natruretic peptide drawn which was elevated. On examination she appeared in good health and spirits, she does not appear to be in any distress. Vital signs as documented. Skin warm and dry and without overt rashes. Neck without JVD, thyroid appears normal, trachea is midline, neck is supple. Lungs-lungs are clear bilaterally although breath sounds are extremely diminished bilaterally. No expiratory rhonchi rales or wheezes were n oted.. Heart exam notable for regular rhythm, normal sounds and absence of murmurs, rubs or gallops. Abdomen unremarkable and without evidence of organomegaly, masses, or abdominal aortic enlargement, bowel sounds are present in all 4 quadrants, no abdominal tenderness was noted. Extremities nonedematous, no cyanosis was noted, no clubbing was noted. Neuro: Cranial nerves II through XII are grossly intact, no focal motor deficits were noted, sensation to light touch and pinprick is intact, motor exam 5/5 throughout. Psych: Patient is alert and oriented x3, she does not appear anxious or depressed, she does not appear agitated. Patient does have a history of chronic obstructive pulmonary disease and is on home O2 chronically, I think it is luna to treat her for CHF in light of the fact that her beta natruretic peptide is elevated and she is got changes on her chest x-ray suggestive of mild CHF. In addition, I will treat her for an exacerbation of COPD, echocardiogram will be performed tomorrow, and her oxygen will be monitored. I have reviewed Angelica Cardenas's history and physical including her medical assessment and plan of care and with the above additions endorse it. I talked to her third grade teacher Dr. West by phone today and he will see her during her hospitalization. Visit Charges OBSV E&M: 36932 Initial observation care L3
[2021-04-13 16:01] LABS: BNP,B-Type NATRIURETIC PEPTIDE 388.2 pg/mL (0-100)
--- NOTE | 2021-04-13 16:08 | ECHOD_ITS ---
Reason For Study: CHF Procedure This was a 2D Doppler, Color Flow transthoracic echocardiogram. Exam performed portable in patient room. Left Ventricle Normal LV size. The estimated ejection fraction is 60 %. Normal diastology for age. No regional wall motion abnormalities noted. Right Ventricle Normal RV size. Atria Normal left atrium. Normal right atrium. No doppler evidence for ASD. Mitral Valve There is no mitral valve stenosis. Trivial mitral valve insufficiency. Tricuspid Valve There is no tricuspid stenosis. Mild tricuspid valve insufficiency. Pulmonary artery systolic pressure is 50-55 mmHg. Aortic Valve Trisinus/trileaflet aortic valve. There is no aortic stenosis. No aortic valve insufficiency. Pulmonic Valve There is no pulmonic valvular stenosis. No pulmonic valve insufficiency. Great Vessels Normal aortic root. Pericardium/Pleural No pericardial effusion. MMode/2D Measurements & Calculations LVIDd: 4.2 cm IVSd: 1.2 cm Ao root diam: 2.6 cm LVIDs: 3.0 cm LVPWd: 0.83 cm RVDd: 3.7 cm FS: 28.1 % LAV(MOD-bp): 34.2 ml LVAd ap4: 19.9 cm2 LVAd ap2: 19.0 cm2 LAV(MOD-bp) Indexed: 19.5 ml/m2 LVLd ap4: 6.6 cm LVLd ap2: 6.4 cm LAV(MOD-sp2): 31.4 ml EDV(MOD-sp4): 50.3 ml EDV(MOD-sp2): 47.9 ml LAV(MOD-sp4): 34.2 ml EDV(sp4-el): 51.1 ml EDV(sp2-el): 47.3 ml LVAs ap4: 11.1 cm2 LVAs ap2: 11.2 cm2 LVLs ap4: 5.9 cm LVLs ap2: 5.8 cm ESV(MOD-sp4): 18.5 ml ESV(MOD-sp2): 18.8 ml ESV(sp4-el): 17.7 ml ESV(sp2-el): 18.5 ml EF(MOD-sp4): 63.3 % EF(MOD-sp2): 60.6 % EF(sp4-el): 65.4 % SV(MOD-sp4): 31.8 ml SV(MOD-sp2): 29.0 ml SV(sp4-el): 33.4 ml LA dimension(2D): 3.5 cm LA A4 area: 13.9 cm2 RA A4 area: 15.6 cm2 Doppler Measurements & Calculations MV E max karmen: 123.8 cm/sec Ao V2 max: 143.5 cm/sec LV V1 max: 98.3 cm/sec Ao max P.3 mmHg LV V1 max P.9 mmHg Ao V2 mean: 99.9 cm/sec Ao mean P.4 mmHg Ao V2 VTI: 24.7 cm PA V2 max: 89.9 cm/sec TR max karmen: 338.7 cm/sec TR max P.9 mmHg ECHO/Echo Complete Interpretation Summary The estimated ejection fraction is 60 %. Normal diastology for age. Trivial mitral valve insufficiency. Mild tricuspid valve insufficiency. Pulmonary artery systolic pressure is 50-55 mmHg. Ordering Physician: Angelica Cardenas Referring Physician: Sherri Hernandez Performed By: Komal Bright RDCS, RVT
[2021-04-13] MEDS: 0.9% Saline Lock 10 ML Syringe IV ×2 (16:49→22:58)
[2021-04-13] MEDS: Furosemide 40 MG/4 ML Vial IV (16:49)
[2021-04-13 16:56] LABS: Bedside Glucose 157 mg/dL (70-110)
[2021-04-13] MEDS: metFORMIN HCl 1,000 MG Tablet 1000 MG PO (16:58)
[2021-04-13] MEDS: Insulin Lispro 100 UNIT/ML INSULN.PEN SC ×2 (16:58→22:55)
[2021-04-13] MEDS: Potassium Chloride Oral Tablet 20 MEQ PO (20:49)
[2021-04-13] MEDS: Primidone 50 MG Tablet PO (22:56)
[2021-04-13] MEDS: Magnesium Chloride 64 MG Delay Rel.Tablet 128 MG PO (22:56)
[2021-04-13] MEDS: Atorvastatin Calcium 10 MG Tablet PO (22:56)
[2021-04-13] MEDS: APIXABAN 2.5 MG TABLET PO (22:56)
[2021-04-13] MEDS: Furosemide 40 MG Tablet PO (22:56)
[2021-04-13] MEDS: Metoprolol Tartrate 25 MG Tablet PO (22:57)
[2021-04-13 23:06] LABS: Bedside Glucose 165 mg/dL (70-110)
[2021-04-14] VITALS (7 sets, daily range): BP systolic 110–145; BP diastolic 68–86; PULSE 94–108; RESP 18–22; TEMP 36.8–37; O2SAT 94–98
[2021-04-14] MEDS: Insulin Lispro 100 UNIT/ML INSULN.PEN SC ×2 (06:36→11:51)
[2021-04-14] MEDS: Levothyroxine 75 MCG Tablet PO (06:36)
[2021-04-14] MEDS: 0.9% Saline Lock 10 ML Syringe IV (06:37)
[2021-04-14 06:55] LABS: Bedside Glucose 169 mg/dL (70-110)
[2021-04-14] MEDS: Ipratropium/Albuterol Sulfate 3 ML AMPUL.NEB INHALATION (07:23)
[2021-04-14] MEDS: metFORMIN HCl 1,000 MG Tablet 1000 MG PO (07:43)
[2021-04-14] MEDS: Aspirin 81 MG TAB.CHEW PO (07:44)
[2021-04-14] MEDS: Potassium Chloride Oral Tablet 20 MEQ PO ×2 (07:46→10:51)
[2021-04-14] MEDS: glipiZIDE XL 5 MG Tablet PO (07:47)
--- NOTE | 2021-04-14 09:25 | RAD_ITS ---
STUDY: X-RAY CHEST REASON FOR EXAM: Female, 76 years old. Hypoxia TECHNIQUE: Single AP portable view of the chest. COMPARISON: None. FINDINGS: Lower spine. Otherwise the lungs are clear and expanded. There is no demonstrated pleural abnormality. Normal size heart. Normal mediastinum and amrit. Normal visualized pulmonary arteries. There is atherosclerotic calcification of the aortic arch with tortuosity. There are diffuse degenerative changes of the visualized thoracic spine. Normal visualized ribs, clavicles, and shoulders. There is no demonstrated abnormality of the visualized soft tissue structures of the upper abdomen. RAD/Chest PA and Lateral IMPRESSION: No acute cardiopulmonary disease. Possible nodularity anterior to the spine, recommend follow-up with CT chest in nonacute setting. Electronically Signed: Francia Collins MD at 2:20 EDT , Service support ,
[2021-04-14 10:00] LABS: Absolute Lymphocyte Count 0.43 X10^3/uL (0.83-4.51); Absolute Neutrophil Count 14.2 X10^3/uL (2.0-7.7); Basophil# 0.02 X10^3/uL; Basophil% 0.1 % (0-1); Hematocrit 33.5 % (37-47); Hemoglobin 10.1 g/dL (12.0-15.0); Lymphocyte # 0.43 X10^3/ul (0.83-4.51); Lymphocyte % 2.8 % (19-41); Mean Corp Hgb Conc 30.1 g/dL (32-36); Mean Corpuscular Hgb 26.1 pg (27.0-32.0); Mean Corpuscular Volume 86.6 fL (81-99); Monocyte# 0.49 X10^3/uL; Monocyte% 3.2 % (0-10); NRBC Flagged by Analyzer 0 % (0-5); Neutrophil # 14.17 X10^3/uL (2.7-7.7); Neutrophil % 93.2 % (47-70); POSITIVE DIFFERENTIAL YES; Platelet Count 271 K/mm3 (150-450); RBC Distribution Width CV 17.1 % (11.6-14.6); RBC Distribution Width SD 51.5 fl (35.1-43.9); Red Blood Count 3.87 M/mm3 (4.2-5.4); White Blood Count 15.2 K/mm3 (4.4-11.0)
[2021-04-14 10:21] LABS: Anion Gap 12 (5-15); BUN 26 mg/dL (7-18); BUN/Creat Ratio 21.5 RATIO (10-20); Calcium,Total 8.9 mg/dL (8.5-10.1); Chloride 99 mmol/L (98-107); Creatinine, Serum 1.21 mg/dL (0.55-1.02); EST Glomerular Filtration Rate 46 mL/min (>60); Est Glom Filt Rate - Afr Amer 56 mL/min (>60); Glucose 248 mg/dL (74-106); Sodium Level 137 mmol/L (136-145)
[2021-04-14 10:24] LABS: Differential Indicated SCAN CRITERIA MET
[2021-04-14 10:25] LABS: Differential Comment SCANNED
[2021-04-14] MEDS: Magnesium Chloride 64 MG Delay Rel.Tablet 128 MG PO (10:49)
[2021-04-14] MEDS: Escitalopram Oxalate 10 MG Tablet PO (10:50)
[2021-04-14] MEDS: Metoprolol Tartrate 50 MG Tablet PO (10:50)
[2021-04-14] MEDS: Furosemide 40 MG Tablet PO (10:51)
[2021-04-14] MEDS: APIXABAN 2.5 MG TABLET PO (10:51)
[2021-04-14] MEDS: amLODIPine 10 MG Tablet PO (10:52)
[2021-04-14] MEDS: Azithromycin 250 MG Tablet PO (10:52)
[2021-04-14] MEDS: Primidone 50 MG Tablet PO (10:52)
--- NOTE | 2021-04-14 11:19 | PCM.DC ---
Discharge Instructions Diet Discharge Diet: 8 Cup Fluid Restriction and 2000 mg Sodium Diet Activity Discharge Activity: Return to Normal Activity Dressing / Incision Call your doctor if you observe: Shortness of breath, Dizziness and Chest pain Follow Up Care Test Results: Test results from this visit will be discussed in further detail at your follow-up appointment, if applicable. Discharge Plan Admission Admit Date/Time: 04/13/21 14:19 Primary Reason for Your Visit: Heart failure, COPD Attending Provider: Arturo Lee Primary Care Provider: Sherri Hernandez Consulting Providers: Dustin West V Discharge Orders/Prescriptions Prescriptions: New prednisone 10 mg tablet See Rx Instructions .ROUTE .COMPLEX Qty: 10 RF: 0 Continued glipizide 5 mg tablet extended release 24 hr 5 mg PO QDAY RF: 0 azithromycin 250 mg tablet 250 mg PO DAILY RF: 0 Daliresp 500 mcg tablet 500 mcg PO QHS RF: 0 Spiriva Respimat 2.5 mcg/actuation mist 2 inh INHALATION QAM RF: 0 Breo Ellipta 200-25 mcg/dose blister with device 1 inh INHALATION DAILY RF: 0 albuterol sulfate 2.5 mg /3 mL (0.083 %) solution for nebulization 2.5 mg continuous nebulization DAILY RF: 0 ergocalciferol (vitamin D2) 1,250 mcg (50,000 unit) capsule 1,250 mcg PO WE RF: 0 cyanocobalamin (vitamin B-12) 2,500 mcg tablet, sublingual 2,500 mcg PO QHS RF: 0 ferrous sulfate 325 mg (65 mg iron) tablet 325 mg PO DAILY RF: 0 metformin 1,000 MG tablet 1,000 mg PO BIDCM RF: 0 albuterol sulfate 1 INHALER inhaler 1 puff INHALATION Q4H PRN PRN (Reason: Wheezing) Qty: 1 RF: 0 magnesium oxide 400 MG tablet 400 mg PO QHS RF: 0 escitalopram oxalate 10 mg tablet 10 mg PO DAILY RF: 0 aspirin 81 MG tablet,chewable 81 mg PO DAILY@0800 RF: 0 metoprolol tartrate 50 mg tablet 25 mg PO QHS RF: 0 primidone 50 mg tablet 50 mg PO BID RF: 0 atorvastatin 10 mg tablet 10 mg PO QHS RF: 0 levothyroxine 75 MCG tablet 75 mcg PO DAILY@0600 RF: 0 amlodipine 10 mg tablet 10 mg PO DAILY RF: 0 Eliquis 2.5 mg tablet 2.5 mg PO BID Qty: 60 RF: 12 metoprolol tartrate 50 mg tablet 50 mg PO DAILY RF: 0 Changed furosemide [Lasix] 40 mg tablet 40 mg PO BID Qty: 60 RF: 0 potassium chloride 20 mEq tablet extended release 20 meq PO BID Qty: 60 RF: 0 Referrals / Follow Up: Sherri Hernandez MD [Primary Care Provider] - In 1 Week Dustin West MD [STAFF PHYSICIAN] - Within 2 Weeks Josef Bright NP, [employer]-C [Nurse Practitioner] - See Referral Note (As scheduled 04/23/2021) Disposition Disposition (needs filled in before D/C Order can be placed): Home, Self Care
--- NOTE | 2021-04-14 11:26 | PCM.DC.SUM ---
Documented by User: Angelica Cardenas NP, K 9 HANDLER/ DEPUTY-C 04/14/21 14:07 Providers Date of Admission: 04/13/21 Date of Discharge: 04/14/21 Primary Care Physician: Dr. Sherri Hernandez MD Consultations 04/13/21 16:11 Consult: Traffic Survey Technician / Pulmonary Medicine Routine Consulting Provider: Dustin West V Reason for Consult: COPD EMERGENT Consult: No MD Notified: Yes Date Notified: 04/13/21 Time Notified: 16:12 Method of Notification: Verbal Reason For Visit: COPD EXACERBATION Diagnosis Discharge Diagnosis (1) Acute exacerbation of chronic obstructive pulmonary disease: Status: Chronic Code(s): J44.1 - Chronic obstructive pulmonary disease with (acute) exacerbation Medications at Discharge Home Medications metformin 1,000 mg PO BIDCM 07/03/14 albuterol sulfate 1 puff INHALATION Q4H PRN PRN #1 inhaler 07/05/14 magnesium oxide 400 mg PO QHS 02/06/15 aspirin 81 mg PO DAILY@0800 10/17/15 glipizide 5 mg tablet, extended release 24 hr 5 mg PO QDAY 12/19/17 amlodipine 10 mg tablet 10 mg PO DAILY 02/23/19 escitalopram oxalate 10 mg tablet 10 mg PO DAILY 02/29/20 albuterol sulfate 2.5 mg CONTINUOUS NEBULIZATION DAILY ml 09/07/20 azithromycin 250 mg tablet 250 mg PO DAILY tab 09/07/20 fluticasone furoate 200 mcg-vilanterol 25 mcg/dose inhalation powder 1 inh INHALATION DAILY 09/07/20 roflumilast 500 mcg tablet 500 mcg PO QHS 09/07/20 tiotropium bromide 2.5 mcg/actuation mist for inhalation 2 inh INHALATION QAM 09/07/20 apixaban 2.5 mg tablet 2.5 mg PO BID #60 tab 04/09/21 metoprolol tartrate 50 mg tablet 50 mg PO DAILY tab 04/09/21 cyanocobalamin (vitamin B-12) 2,500 mcg sublingual tablet 2,500 mcg PO QHS tab 04/10/21 ergocalciferol (vitamin D2) 1,250 mcg (50,000 unit) capsule 1,250 mcg PO WE cap 04/10/21 ferrous sulfate 325 mg (65 mg iron) tablet 325 mg PO DAILY tab 04/10/21 atorvastatin 10 mg PO QHS 04/13/21 levothyroxine 75 mcg PO DAILY@0600 04/13/21 metoprolol tartrate 25 mg PO QHS 04/13/21 primidone 50 mg PO BID 04/13/21 furosemide [Lasix] 40 mg PO BID #60 tab 04/14/21 potassium chloride 20 meq PO BID #60 tab 04/14/21 prednisone See Rx Instructions .ROUTE .COMPLEX #10 tab 04/14/21 Hospital Course Operations None Procedures 2-D Echocardiogram Summary of Care Provided Minutes Spent on Discharge: 35 Hospital Course: Patient is a 76-year-old female admitted 04/13/2021 due to shortness of breath. 1. Acute exacerbation of chronic COPD with chronic hypoxic respiratory failure-Mild exacerbation. On 2 L nasal cannula at baseline. IV Solu-Medrol during admission. Dr. West consulted during admission per patient request. Discharge on short prednisone burst. Follow with Dr. West in one week. 2. Acute heart failure with preserved ejection fraction- Chest x-ray shows mild CHF. BNP Elevated. Echocardiogram 2018 demonstrated an EF of 50%, pulmonary artery systolic pressure 48 mmHg. Repeat echo completed, report pending and will be reviewed prior to discharge. Lasix increased to 40 mg twice daily. Patient has upcoming follow-up with cardiology. 3. Hypertension-stable, continue amlodipine, metoprolol. 4. Type 2 diabetes mellitus-Continue oral regimen. 5. ISABEL on CPAP 6. Paroxysmal atrial fibrillation-on Eliquis, metoprolol. 7. Hypothyroidism-continue Synthroid regimen. 8. Depression-on escitalopram. 9. Essential tremors-following with neurology. Physical Exam Const alert, oriented x3 and no apparent distress Orientation / Consciousness: awake, oriented to person, oriented to place and oriented to time HEENT normocephalic and moist oral mucous membranes Eyes PERRL, EOMs intact bilaterally and conjunctivae normal Neck no lymphadenopathy Resp Auscultation: wheezes and diminished lung sounds Cardio regular rate, regular rhythm and no murmurs Peripheral Pulses: pulses 2+ throughout GI normal to inspection, nondistended, normoactive bowel sounds, non-tender and non-distended Extremity normal to inspection Skin no rashes or lesions noted Lesions: no lesions Rashes: no rashes Trauma: no lacerations or abrasions Neuro CN's II-XII intact bilaterally, no focal motor deficits, no sensory deficits noted and deep tendon reflexes 2+ bilaterally Psych mental status grossly normal and affect normal Patient seen and examined prior to discharge. Physical assessment as noted above. Patient is stable for discharge with follow up recommendations as noted above. This patient was seen by FRANCIS Bailon under the supervision of Dr. Lee. Weight / BMI Weight Weight: 154 lb 15.759 oz Body Mass Index (BMI) 25.7 ABG / Lab / Microbiology Data Result Diagrams: 04/14/21 09:40 04/14/21 09:40 Laboratory: Laboratory Results - last 24 hr 04/13/21 12:20: WBC 7.3, RBC 3.77 L, Hgb 9.6 L, Hct 32.6 L, MCV 86.5, MCH 25.5 L, MCHC 29.4 L, RDW Std Deviation 51.6 H, RDW Coeff of Malik 16.9 H, Plt Count 214, MPV 9.7, Immature Gran % (Auto) 0.400, Neut % (Auto) 74.8 H, Lymph % (Auto) 11.7 L, Mcpherson % (Auto) 8.5, Eos % (Auto) 4.0, Baso % (Auto) 0.6, Absolute Neuts (auto) 5.4, Absolute Lymphs (auto) 0.85, Nucleated RBC % 0 04/13/21 12:20: Troponin I High Sens 4.2 04/13/21 12:20: Sodium 138, Potassium 4.7, Chloride 105, Carbon Dioxide 26.0, Anion Gap 7, BUN 15, Creatinine 0.82, Estim Creat Clear Calc 54.16, Est GFR (MDRD) Af Amer 87, Est GFR (MDRD) Non-Af 72, BUN/Creatinine Ratio 18.2, Glucose 103, Calcium 8.7 04/13/21 12:20: B-Natriuretic Peptide 388.2 H 04/13/21 16:46: POC Glucose 157 H 04/13/21 22:54: POC Glucose 165 H 04/14/21 06:35: POC Glucose 169 H 04/14/21 09:40: WBC 15.2 H, RBC 3.87 L, Hgb 10.1 L, Hct 33.5 L, MCV 86.6, MCH 26.1 L, MCHC 30.1 L, RDW Std Deviation 51.5 H, RDW Coeff of Malik 17.1 H, Plt Count 271, MPV 10.0, Immature Gran % (Auto) 0.700, Neut % (Auto) 93.2 H, Lymph % (Auto) 2.8 L, Mcpherson % (Auto) 3.2, Eos % (Auto) 0.0, Baso % (Auto) 0.1, Absolute Neuts (auto) 14.2 H, Absolute Lymphs (auto) 0.43 L, Nucleated RBC % 0, Differential Comment SCANNED 04/14/21 09:40: Sodium 137, Potassium 4.0, Chloride 99, Carbon Dioxide 26.0, Anion Gap 12, BUN 26 H, Creatinine 1.21 H, Estim Creat Clear Calc 36.70, Est GFR (MDRD) Af Amer 56 L, Est GFR (MDRD) Non-Af 46 L, BUN/Creatinine Ratio 21.5 H, Glucose 248 H, Calcium 8.9 Radiography Diagnostic Testing: Radiology Impression Chest X-Ray 04/13/21 12:07 IMPRESSION: Findings suggestive of mild CHF. Electronically Signed: Cody Wong MD at 13:09 EDT , Service support , D/C Instructions Discharge Diet: 8 Cup Fluid Restriction and 2000 mg Sodium Diet Call your doctor if you observe: Shortness of breath, Dizziness and Chest pain Meaningful Use Info Meaningful Use Diagnoses (Choose all that apply): CHF CHF TRUDY/ARB ordered at discharge?: No Reason TRUDY/ARB not ordered?: Not indicated Documented LVEF (%): 50 Discharge Plan Admission Admit Date/Time: 04/13/21 14:19 Primary Reason for Your Visit: Heart failure, COPD Attending Provider: Arturo Lee Primary Care Provider: Sherri Hernandez Consulting Providers: Dustin West V Discharge Orders/Prescriptions Prescriptions: New prednisone 10 mg tablet See Rx Instructions .ROUTE .COMPLEX Qty: 10 RF: 0 Continued glipizide 5 mg tablet extended release 24 hr 5 mg PO QDAY RF: 0 azithromycin 250 mg tablet 250 mg PO DAILY RF: 0 Daliresp 500 mcg tablet 500 mcg PO QHS RF: 0 Spiriva Respimat 2.5 mcg/actuation mist 2 inh INHALATION QAM RF: 0 Breo Ellipta 200-25 mcg/dose blister with device 1 inh INHALATION DAILY RF: 0 albuterol sulfate 2.5 mg /3 mL (0.083 %) solution for nebulization 2.5 mg continuous nebulization DAILY RF: 0 ergocalciferol (vitamin D2) 1,250 mcg (50,000 unit) capsule 1,250 mcg PO WE RF: 0 cyanocobalamin (vitamin B-12) 2,500 mcg tablet, sublingual 2,500 mcg PO QHS RF: 0 ferrous sulfate 325 mg (65 mg iron) tablet 325 mg PO DAILY RF: 0 metformin 1,000 MG tablet 1,000 mg PO BIDCM RF: 0 albuterol sulfate 1 INHALER inhaler 1 puff INHALATION Q4H PRN PRN (Reason: Wheezing) Qty: 1 RF: 0 magnesium oxide 400 MG tablet 400 mg PO QHS RF: 0 escitalopram oxalate 10 mg tablet 10 mg PO DAILY RF: 0 aspirin 81 MG tablet,chewable 81 mg PO DAILY@0800 RF: 0 metoprolol tartrate 50 mg tablet 25 mg PO QHS RF: 0 primidone 50 mg tablet 50 mg PO BID RF: 0 atorvastatin 10 mg tablet 10 mg PO QHS RF: 0 levothyroxine 75 MCG tablet 75 mcg PO DAILY@0600 RF: 0 amlodipine 10 mg tablet 10 mg PO DAILY RF: 0 Eliquis 2.5 mg tablet 2.5 mg PO BID Qty: 60 RF: 12 metoprolol tartrate 50 mg tablet 50 mg PO DAILY RF: 0 Changed furosemide [Lasix] 40 mg tablet 40 mg PO BID Qty: 60 RF: 0 potassium chloride 20 mEq tablet extended release 20 meq PO BID Qty: 60 RF: 0 Referrals / Follow Up: Sherri Hernandez MD [Primary Care Provider] - In 1 Week Dustin West MD [STAFF PHYSICIAN] - Within 2 Weeks Josef Bright NP, K 9 HANDLER/ DEPUTY-C [Nurse Practitioner] - See Referral Note (As scheduled 04/23/2021) Disposition Disposition (needs filled in before D/C Order can be placed): Home, Self Care Documented by User: Dr. Arturo Lee DO 04/14/21 17:02 Providers Date of Admission: 04/13/21 Reason For Visit: COPD EXACERBATION Medications at Discharge Home Medications metformin 1,000 mg PO BIDCM 07/03/14 albuterol sulfate 1 puff INHALATION Q4H PRN PRN #1 inhaler 07/05/14 magnesium oxide 400 mg PO QHS 02/06/15 aspirin 81 mg PO DAILY@0800 10/17/15 glipizide 5 mg tablet, extended release 24 hr 5 mg PO QDAY 12/19/17 amlodipine 10 mg tablet 10 mg PO DAILY 02/23/19 escitalopram oxalate 10 mg tablet 10 mg PO DAILY 02/29/20 albuterol sulfate 2.5 mg CONTINUOUS NEBULIZATION DAILY ml 09/07/20 azithromycin 250 mg tablet 250 mg PO DAILY tab 09/07/20 fluticasone furoate 200 mcg-vilanterol 25 mcg/dose inhalation powder 1 inh INHALATION DAILY 09/07/20 roflumilast 500 mcg tablet 500 mcg PO QHS 09/07/20 tiotropium bromide 2.5 mcg/actuation mist for inhalation 2 inh INHALATION QAM 09/07/20 apixaban 2.5 mg tablet 2.5 mg PO BID #60 tab 04/09/21 metoprolol tartrate 50 mg tablet 50 mg PO DAILY tab 04/09/21 cyanocobalamin (vitamin B-12) 2,500 mcg sublingual tablet 2,500 mcg PO QHS tab 04/10/21 ergocalciferol (vitamin D2) 1,250 mcg (50,000 unit) capsule 1,250 mcg PO WE cap 04/10/21 ferrous sulfate 325 mg (65 mg iron) tablet 325 mg PO DAILY tab 04/10/21 atorvastatin 10 mg PO QHS 04/13/21 levothyroxine 75 mcg PO DAILY@0600 04/13/21 metoprolol tartrate 25 mg PO QHS 04/13/21 primidone 50 mg PO BID 04/13/21 furosemide [Lasix] 40 mg PO BID #60 tab 04/14/21 potassium chloride 20 meq PO BID #60 tab 04/14/21 prednisone See Rx Instructions .ROUTE .COMPLEX #10 tab 04/14/21 ABG / Lab / Microbiology Data Result Diagrams: 04/14/21 09:40 04/14/21 09:40 Discharge Plan Admission Admit Date/Time: 04/13/21 14:19 Primary Reason for Your Visit: Heart failure, COPD Attending Provider: Arturo Lee Primary Care Provider: Sherri Hernandez Consulting Providers: Dustin West V Discharge Orders/Prescriptions Prescriptions: New prednisone 10 mg tablet See Rx Instructions .ROUTE .COMPLEX Qty: 10 RF: 0 Continued glipizide 5 mg tablet extended release 24 hr 5 mg PO QDAY RF: 0 azithromycin 250 mg tablet 250 mg PO DAILY RF: 0 Daliresp 500 mcg tablet 500 mcg PO QHS RF: 0 Spiriva Respimat 2.5 mcg/actuation mist 2 inh INHALATION QAM RF: 0 Breo Ellipta 200-25 mcg/dose blister with device 1 inh INHALATION DAILY RF: 0 albuterol sulfate 2.5 mg /3 mL (0.083 %) solution for nebulization 2.5 mg continuous nebulization DAILY RF: 0 ergocalciferol (vitamin D2) 1,250 mcg (50,000 unit) capsule 1,250 mcg PO WE RF: 0 cyanocobalamin (vitamin B-12) 2,500 mcg tablet, sublingual 2,500 mcg PO QHS RF: 0 ferrous sulfate 325 mg (65 mg iron) tablet 325 mg PO DAILY RF: 0 metformin 1,000 MG tablet 1,000 mg PO BIDCM RF: 0 albuterol sulfate 1 INHALER inhaler 1 puff INHALATION Q4H PRN PRN (Reason: Wheezing) Qty: 1 RF: 0 magnesium oxide 400 MG tablet 400 mg PO QHS RF: 0 escitalopram oxalate 10 mg tablet 10 mg PO DAILY RF: 0 aspirin 81 MG tablet,chewable 81 mg PO DAILY@0800 RF: 0 metoprolol tartrate 50 mg tablet 25 mg PO QHS RF: 0 primidone 50 mg tablet 50 mg PO BID RF: 0 atorvastatin 10 mg tablet 10 mg PO QHS RF: 0 levothyroxine 75 MCG tablet 75 mcg PO DAILY@0600 RF: 0 amlodipine 10 mg tablet 10 mg PO DAILY RF: 0 Eliquis 2.5 mg tablet 2.5 mg PO BID Qty: 60 RF: 12 metoprolol tartrate 50 mg tablet 50 mg PO DAILY RF: 0 Changed furosemide [Lasix] 40 mg tablet 40 mg PO BID Qty: 60 RF: 0 potassium chloride 20 mEq tablet extended release 20 meq PO BID Qty: 60 RF: 0 Referrals / Follow Up: Sherri Hernandez MD [Primary Care Provider] - In 1 Week Dustin West MD [STAFF PHYSICIAN] - Within 2 Weeks Josef Bright K 9 HANDLER/ DEPUTY, K 9 HANDLER/ DEPUTY-C [Nurse Practitioner] - See Referral Note (As scheduled 04/23/2021) Disposition Disposition (needs filled in before D/C Order can be placed): Home, Self Care Charges/Coding Addendum Addendum: Patient was seen and examined independently of Angelica Cardenas today, she is breathing much better and she requires 2 L of oxygen on ambulation. I talked briefly with pulmonary medicine who saw her in consultation today and they felt that the patient's issue on admission was congestive heart failure. Patient's echocardiogram showed a normal EF today. Patient also had mild pulmonary hypertension. On examination she appeared in good health and spirits, she does not appear to be in any distress. Vital signs as documented. Skin warm and dry and without overt rashes. Neck without JVD, thyroid appears normal, trachea is midline, neck is supple. Lungs clear, normal air movement was noted. Heart exam notable for irregular rhythm, normal sounds and absence of murmurs, rubs or gallops. Abdomen unremarkable and without evidence of organomegaly, masses, or abdominal aortic enlargement, bowel sounds are present in all 4 quadrants, no abdominal tenderness was noted. Extremities nonedematous, no cyanosis was noted, no clubbing was noted. Neuro: Cranial nerves II through XII are grossly intact, no focal motor deficits were noted, sensation to light touch and pinprick is intact, motor exam 5/5 throughout. Psych: Patient is alert and oriented x3, she does not appear anxious or depressed, she does not appear agitated. Patient appears stable for discharge at this time, I have reviewed Angelica Ronald's discharge summary including her medical assessment and plan of care and endorse it. Visit Charges OBSV E&M: 61503 Observation care discharge
[2021-04-14] MEDS: Ferrous Sulfate 325 MG Tablet PO (11:52)
[2021-04-14 12:01] LABS: Bedside Glucose 193 mg/dL (70-110)
--- NOTE | 2021-04-14 13:00 | CASEMGMT ---
RN CM GASOLINE SERVICE ATTENDANT CM to room to meet with patient for initial transition planning/care coordination assessment. RN CARLEEN introduced self and role at [facility]. Pt voices understanding and consents to assessment at this time. Pt resting in bed in no distress at this time. , Shmuel, and daughter, Nina, @ bedside. Pt is A/O at this time and answers all questions appropriately. Care providers, pharmacy, and demographics verified/updated at this time. PCP: Dr Hernandez Specialists:Dr West--pulmonology, Dr Mon-cardiology, Dr Vargas-neurology, Dr Pearson-GI in [place], Dr Miller-ophthalmology Preferred Pharmacy: [facility] Insurance: [employer] [facility] Prescription Benefit: Yes Living Will/HPOA: does not have LW or HCPOA . Interested in more information and would like to talk with SW to complete paperwork. Provided information on advanced directives and given Social Service rac card with number to call to utilize [facility] social work for advanced directive completion as an Out-pt, if SW is unable to meet w/her prior to discharge. LNOK: , Shmuel. 6 children. Daughter, Nina, present in room. Living Arrangements: Lives w/her in one-story home w/no steps to enter. Independent w/ADL's. does most home mgmt tasks. Pt states she tries to assist when she can. Nina manages meds/appts. Transportation: DME: has the following DME: glucometer, walker, W/C, CPAP, nebulizer, BP cuff, Pulse ox, Home O2 @ 4L/M thru [employer]. Has portable O2 w/her in her room Pt states no need for further DME at this time. HHC/SNF: Hx [facility] RU. No hx of HHC. Denies need for HHC or OP therapy. Pt wishes to return home and states has no concerns with going home at time of discharge. CM to follow for home oxygen needs and any further discharge planning/needs. Pt/family voice no further concerns/needs at this time. Advised them to ask for CM if any further questions/concerns/needs arise. They voice understanding. PLAN: Home w/family support and discharge plans in place. Rodrigo WU RN, CM
--- NOTE | 2021-04-14 17:52 | CASEMGMT ---
ROSA M Note Referral Source: Medieval English Literature Professor Referral Reason: Advanced Directives SW was advised that patient was interested in Advanced Directives. SW met with patient and her daughter. Patient was discharged. SW advised that patient could have 2 individuals sign the Advanced Directives as witnesses or obtain a notary signature. SW advised that if questions or concerns arise then patient can call [facility] and speak to social service agency director. SW provided [facility] Advanced Directives packet to patient. No further needs or issues reported. Neha GRANT
== END 2021-04-14 14:54 | disposition home or self-care (01) ==
LOC: ED 13:54 → MS3 14:17
PROVIDERS: Nurse Practitioner Family; Admitting Provider Internal Medicine; Emergency Provider Emergency Medicine; PCP Family Medicine; Visit Provider Internal Medicine
DX: J44.1 Chronic obstructive pulmonary disease with (acute) exacerbation (principal); E11.9 Type 2 diabetes mellitus without complications; I11.0 Hypertensive heart disease with heart failure; I50.31 Acute diastolic (congestive) heart failure; I48.0 Paroxysmal atrial fibrillation; G47.33 Obstructive sleep apnea (adult) (pediatric); E03.9 Hypothyroidism, unspecified; E66.9 Obesity, unspecified; E78.5 Hyperlipidemia, unspecified; F32.9 Major depressive disorder, single episode, unspecified; F41.9 Anxiety disorder, unspecified; I27.21 Secondary pulmonary arterial hypertension; J96.21 Acute and chronic respiratory failure with hypoxia; G25.0 Essential tremor; K21.9 Gastro-esophageal reflux disease without esophagitis; Z79.899 Other long term (current) drug therapy; Z79.84 Long term (current) use of oral hypoglycemic drugs; Z79.82 Long term (current) use of aspirin; Z79.01 Long term (current) use of anticoagulants; Z87.891 Personal history of nicotine dependence; Z99.81 Dependence on supplemental oxygen
CPT/HCPCS: 36415; 71045; 71046; 80048; 82962; 83880; 84484; 85025; 87040; 93005; 93306; 94640; 96374; 96375; 96376; 99218; 99251; 99285; A4216; G0378; G0463; J1940

== ENCOUNTER → 2021-06-01 06:29 | Outpatient (CLI) | payer MEDICARE, SELFPAY ==
[2021-04-23 11:20] VITALS: BMI 25.7
--- NOTE | 2021-06-01 11:39 | STRESSREP ---
Stress Test Report Date: 06/01/2021 Procedure: Pharmacologic stress nuclear imaging study Indications: Chest tightness Consent: Per the patient Procedure: The patient underwent pharmacologic (Regadenoson) evaluation with a peak heart rate of 171 beats per minute (117%predicted maximal heart rate) and a peak blood pressure of 124/82 mmHg. The baseline ECG demonstrated [atrial fibrillation]. EKG during lexiscan infusion revealed no significant ischemic changes. EKG post infusion revealed no significant ischemic changes [There were no cardiac dysrhythmias pretest, during pharmacologic infusion, or recovery]. [There was no complaint of chest discomfort during pharmacologic infusion or recovery]. The examination was discontinued secondary to completion of protocol. Impression: 1. Lexiscan stress test test is negative for Lexiscan infusion induced EKG changes of ischemia. 2. Lexiscan stress test test is negative for Lexiscan infusion induced chest pain. 3. Results of the nuclear portion of the test is as below Myocardial perfusion imaging study: Technique: The patient was injected with 10.8 millicuries of technetium 99m Cardiolite and subsequently rest SPECT Cardiolite nuclear imaging was obtained in the horizontal long, vertical long, and short axis views. The patient underwent pharmacologic [Regadenoson 0.4mg] evaluation. Please see above for details. The patient was injected with 33.5 millicuries of technetium 99m Cardiolite and subsequently stress SPECT Cardiolite nuclear imaging was obtained in the horizontal long, vertical long, and short axis views. A gated Cardiolite study at peak stress was obtained. Interpretation: Rest and stress SPECT Cardiolite nuclear imaging status post realignment, normalization, and attenuation correction demonstrate no evidence of significant ischemia or infarction. Gated images reveal no significant regional wall motion normalities. The reported LVEF is 64%. Impression: 1. There is no evidence of significant ischemia or infarction. 2. Estimated ejection fraction is 64%. This note was generated with [employer] software. It may contain incorrect words, spelling, and punctuation that were not noted in checking the note before signing.
== END ==
PROVIDERS: PCP Family Medicine; Referring Provider Nurse Practitioner Family; Visit Provider Nurse Practitioner Family
DX: I48.0 Paroxysmal atrial fibrillation (principal); R06.00 Dyspnea, unspecified; R07.9 Chest pain, unspecified
CPT/HCPCS: 78452; 93017; A9500; A4216; J2785

== ENCOUNTER → 2021-07-27 11:09 | Outpatient (CLI) | payer MEDICARE, SELFPAY ==
--- NOTE | 2021-07-27 11:20 | RAD_ITS ---
STUDY: X-RAY CHEST REASON FOR EXAM: Female, 76 years old. CP, SOB TECHNIQUE: PA and lateral views of the chest. COMPARISON: 04/14/2021 FINDINGS: The lungs are clear and expanded. There is no demonstrated pleural abnormality. Normal size heart. Normal mediastinum and amrit. Normal visualized pulmonary arteries. There is atherosclerotic calcification of the aortic arch with tortuosity. There are diffuse degenerative changes of the visualized thoracic spine. Normal visualized ribs, clavicles, and shoulders. There is no demonstrated abnormality of the visualized soft tissue structures of the upper abdomen. RAD/Chest PA and Lateral IMPRESSION: Stable, nonacute x-ray examination of the chest. Electronically Signed: Uriel Bonilla MD (Brooks) at 16:18 EDT , Service support ,
[2021-07-27 12:40] LABS: Anion Gap 10 (5-15); BNP,B-Type NATRIURETIC PEPTIDE 367.8 pg/mL (0-100); BUN 34 mg/dL (7-18); BUN/Creat Ratio 30.4 RATIO (10-20); Calcium,Total 9.4 mg/dL (8.5-10.1); Chloride 98 mmol/L (98-107); Creatinine, Serum 1.12 mg/dL (0.55-1.02); EST Glomerular Filtration Rate 51 mL/min (>60); Est Glom Filt Rate - Afr Amer 61 mL/min (>60); Glucose 138 mg/dL (74-106); Potassium 4.1 mmol/L (3.5-5.1); Sodium Level 138 mmol/L (136-145)
== END ==
PROVIDERS: PCP Family Medicine; Referring Provider Nurse Practitioner Family; Visit Provider Nurse Practitioner Family
DX: R06.00 Dyspnea, unspecified (principal); R07.9 Chest pain, unspecified
CPT/HCPCS: 36415; 71046; 80048; 83880

== ENCOUNTER 2021-10-07 09:46 | Emergency (ER) | payer MEDICARE, SELFPAY ==
[2021-10-07] VITALS (10 sets, daily range): BP systolic 100–129; BP diastolic 48–89; PULSE 103–129; RESP 4–26; TEMP 36; O2SAT 92–100; BMI 20.5
--- NOTE | 2021-10-07 09:59 | EKG12_ITS ---
Test Reason : CP Blood Pressure : / mmHG Vent. Rate : 113 BPM Atrial Rate : 138 BPM P-R Int : 000 ms QRS Dur : 074 ms QT Int : 344 ms P-R-T Axes : 000 078 061 degrees QTc Int : 471 ms Atrial fibrillation Low voltage QRS Septal infarct , age undetermined Abnormal ECG Confirmed by MALGORZATA MATA, DELILAH ([id number]), newspaper editor ARTURO LEE ([id number]) on 10/09/2021 1:36:55 PM Referred By: MASON Confirmed By:DELILAH MCGARRY MD
--- NOTE | 2021-10-07 10:00 | EDS_ITS ---
HPI History of Present Illness Chief Complaint: Chest Pain Informant: patient Onset/Context/Timing Onset: Days Activity at onset: gradual Timing: Continuous Quality: Positive for Tightness Location: Left Parasternal Worsened By: Exertion Relieved By: Nothing Narrative Narrative: Patient presents with chest pain that has been getting worse over the past few days. Patient states it is gradually getting worse. Patient describes it as a tightness. Patient states it is over the left parasternal area. Patient also admits to some shortness of breath and cough. Patient states her breathing is worse with any exertion. Patient states she also had an episode of dizziness a couple days ago. Patient states she can feel her heart beating irregularly. Patient states she has a history of atrial fibrillation. Patient also has a history of COPD. CVD Risk Factors: Positive for Hypertension and Family History 1' </=55; Negative for Diabetes, Hypercholesterolemia and Smoking PE Risk Factors: Negative for Recent Travel/Surgery, Recent Immobilization, Prior DVT or PE, Cancer and OCP + Smoking + >/=35 PFSH PFSH Medical History Acute and chronic respiratory failure with hypoxia Acute exacerbation of chronic obstructive pulmonary disease Anxiety Atrial fibrillation Chest pain COPD (chronic obstructive pulmonary disease) CPAP (continuous positive airway pressure) dependence Depression Diabetes Essential (primary) hypertension Former smoker GERD (gastroesophageal reflux disease) Hyperlipidemia Hypertension Hypothyroidism Meningioma Obesity Obstructive sleep apnea On home oxygen therapy Paroxysmal atrial fibrillation Secondary pulmonary arterial hypertension Sleep apnea Stroke/cerebrovascular accident Subdural hematoma (2014) Thyroid cancer Type 2 diabetes mellitus Home Medications metformin 1,000 mg PO BIDCM 07/03/14 [History Last Taken 04/13/21] albuterol sulfate 1 puff INHALATION Q4H PRN PRN #1 inhaler 07/05/14 [Rx Last Taken 04/13/21] magnesium oxide 400 mg PO QHS 02/06/15 [History Last Taken 04/12/21] amlodipine 10 mg tablet 10 mg PO DAILY 02/23/19 [History Last Taken 04/13/21] escitalopram oxalate 10 mg tablet 10 mg PO DAILY 02/29/20 [History Last Taken 04/13/21] albuterol sulfate 2.5 mg CONTINUOUS NEBULIZATION DAILY ml 09/07/20 [History Last Taken 04/12/21] azithromycin 250 mg tablet 250 mg PO DAILY tab 09/07/20 [History Last Taken 04/13/21] fluticasone furoate 200 mcg-vilanterol 25 mcg/dose inhalation powder 1 inh INHALATION DAILY 09/07/20 [History Last Taken 04/13/21] roflumilast 500 mcg tablet 500 mcg PO QHS 09/07/20 [History Last Taken 04/12/21] tiotropium bromide 2.5 mcg/actuation mist for inhalation 2 inh INHALATION QAM 09/07/20 [History Last Taken 04/13/21] cyanocobalamin (vitamin B-12) 2,500 mcg sublingual tablet 2,500 mcg PO QHS tab 04/10/21 [History Last Taken 04/12/21] ergocalciferol (vitamin D2) 1,250 mcg (50,000 unit) capsule 1,250 mcg PO WE cap 04/10/21 [History Last Taken 04/11/21] atorvastatin 10 mg PO QHS 04/13/21 [History Last Taken 04/12/21] levothyroxine 75 mcg PO DAILY@0600 04/13/21 [History Last Taken 04/13/21] primidone 50 mg PO BID 04/13/21 [History Last Taken 04/13/21] furosemide 40 mg tablet 40 mg PO BID #60 tab 04/23/21 [Rx Last Taken Unknown] metoprolol tartrate 50 mg tablet 50 mg PO BID #180 tab 04/30/21 [Rx Last Taken Unknown] potassium chloride 20 meq PO DAILY 10/07/21 [History Last Taken Unknown] Allergy/AdvReac Type Severity Reaction Status Date / Time ceftriaxone sodium Allergy Hives Verified 10/07/21 09:46 [From Rocephin] doxycycline AdvReac Intermediate nausea Verified 10/07/21 09:46 codeine AdvReac Nausea Verified 10/07/21 09:46 Family History Brother Diabetes Brother Heart disease Brother Diabetes Heart disease Sister Heart disease Diabetes CVA (cerebral vascular accident) Mother COPD (chronic obstructive pulmonary disease) Father Heart disease Surgical History History of cataract extraction History of subtotal thyroidectomy Hx of cholecystectomy Social History Smoking Status: Former smoker pack-years: 40 how long ago did patient quit smokin years ago alcohol intake: never substance use type: does not use caffeine: Yes Type: carbonated beverages Number of servings: 1 and tea Number of servings: 1 ROS ROS ED Constitutional Constitutional ED: Denies chills or fever(s) Eyes Eyes: Denies blurry vision or change in vision ENT ENT ED: Reports rhinorrhea; Denies sore throat Cardiovascular Cardiovascular: Reports chest pain and palpitations Respiratory/Chest Respiratory/Chest: Reports cough and dyspnea Gastrointestinal Gastrointestinal: Reports nausea; Denies abdominal pain or vomiting Genitourinary Genitourinary ED: Denies dysuria or hematuria Musculoskeletal Musculoskeletal: Denies back pain or neck pain Integumentary Denies abscess or rash Neurologic Neurologic: Denies headache(s) or weakness Allergic/Immunologic Allergic/Immunologic ED: Denies mouth swelling or urticaria EXAM Physical Exam Const Vital Signs: 10/07/21 09:46 10/07/21 09:48 10/07/21 09:51 Temperature 96.8 F L 96.8 F L Temperature Source Temporal Temporal Pulse Rate 112 H 112 H Respiratory Rate 26 H 26 H Respiratory Effort Short of Breath Labored Accessory Muscle Use Respiratory Depth Blood Pressure 129/89 H 129/89 H Blood Pressure Mean 102 102 Pulse Ox 92 92 Oxygen Delivery Method Nasal Cannula Nasal Cannula Oxygen Flow Rate (L/min) 3 3 10/07/21 09:54 10/07/21 10:02 10/07/21 10:08 Temperature Temperature Source Pulse Rate 129 H Respiratory Rate 20 H Respiratory Effort Short of Breath Labored Accessory Muscle Use Short of Breath Accessory Muscle Use Respiratory Depth Deep Blood Pressure Blood Pressure Mean Pulse Ox 100 100 Oxygen Delivery Method Nasal Cannula Nasal Cannula Nasal Cannula Oxygen Flow Rate (L/min) 3 3 3 10/07/21 10:59 10/07/21 11:08 10/07/21 12:42 Temperature Temperature Source Pulse Rate 109 H 113 H 107 H Respiratory Rate 15 14 15 Respiratory Effort Respiratory Depth Blood Pressure 113/58 L 113/58 L 105/48 L Blood Pressure Mean 76 76 67 Pulse Ox 97 95 98 Oxygen Delivery Method Nasal Cannula Nasal Cannula Room Air Oxygen Flow Rate (L/min) 3 3 Positive well nourished and well developed General Appearance ED: well developed HEENT Reports moist mucous membranes normocephalic Neck supple and no JVD Resp normal respiratory effort Auscultation: diminished lung sounds diffuse Cardio regular rate Rhythm: abnormal rhythm irregularly irregular GI normal to inspection, nondistended, normoactive bowel sounds, soft to palpation and non-tender Extremity General Extremety ED: Negative for edema or tenderness General Extremity: Negative for edema Neuro oriented x3, CN's II-XII intact bilaterally and no sensory deficits noted Sensorium / Orientation: awake and alert Motor Exam: strength 5/5 throughout Psych mental status grossly normal Heart Score History: Slightly/Non-Suspicious ECG: Normal Age: >/= 65 years Risk Factors: 1 or 2 Risk Factors Troponin: </= Normal Limit Score: 3 MDM MDM MDM Narrative Medical decision making narrative: Patient was given a DuoNeb aerosol here. Patient was given albuterol aerosol. Patient was given aspirin. EKG was obta ined. On my interpretation, shows atrial fibrillation with a rate of 113. There are no acute ST or T wave changes. QRS interval and QTc intervals were normal. [place] was normal. CBC shows a hemoglobin of 7.6 hematocrit 27.0. Platelets were normal. Basic metabolic profile was essentially within normal limits. BUN was 25 and creatinine was 1.29. This is consistent with prior results. Initial hig h-sensitivity troponin was normal at 8. 2-hour repeat high-sensitivity troponin was obtained and was also 8. Portable 1 view chest x-ray was obtained. On my interpretation, lung banks are clear. There is normal cardiac silhouette. Bony thorax is normal. There is no acute process noted. Radiologist also interpreted the x-ray and agrees. Patient has a HEART score of 3. Patient is at low risk for acute cardiac event. Patient was advised to follow-up with her primary care physician in 3 to 5 days for further evaluation of her anemia. Patient states she had a recent upper endoscopy as well as a recent colonoscopy which were normal. Patient also had a stress test in May which was normal. Patient and family understand and are agreeable with the plan. All questions were answered. Lab Data Attestation: I reviewed the patient's lab results. Labs: Laboratory Results - last 24 hr 10/07/21 10/07/21 10/07/21 09:59 09:59 12:14 WBC 4.7 RBC 3.04 L Hgb 7.6 L Hct 27.0 L MCV 88.8 MCH 25.0 L MCHC 28.1 L RDW Std Deviation 60.4 H RDW Coeff of Malik 18.9 H Plt Count 191 MPV 9.3 Immature Gran % (Auto) 0.200 Neut % (Auto) 54.0 Lymph % (Auto) 34.1 [place] % (Auto) 6.0 Eos % (Auto) 5.3 H Baso % (Auto) 0.4 Absolute Neuts (auto) 2.5 Absolute Lymphs (auto) 1.60 Nucleated RBC % 0 Sodium 140 Potassium 4.0 Chloride 104 Carbon Dioxide 28.0 Anion Gap 8 BUN 25 H Creatinine 1.29 H Estim Creat Clear Calc 34.92 Est GFR (MDRD) Af Amer 52 L Est GFR (MDRD) Non-Af 43 L BUN/Creatinine Ratio 19.4 Glucose 131 H Calcium 8.4 L Troponin I High Sens 8 8 Radiography Chest X-Ray - ED: 1 View, Read by ED Physician, Read by Radiologist and Normal Diagnostic Testing: Clinical Impression(s) from Imaging Studies Chest X-Ray 10/07/21 10:19 IMPRESSION: Normal x-ray examination of the chest. Electronically Signed: Andre Yeboah MD at 11:06 EST Tel , Service support , EKG Initial EKG: Attestation: I personally reviewed and interpreted this EKG as follows: Interpretation: No Acute Injury Pattern and Atrial Fibrillation (113) Prior EKG tracings: available for review Prior: Unchanged (04/13/2021) Discharge Plan Triage Chief Complaint: Chest Pain ED Provider: Tahir Gaines Dx/Rx/DC Orders Clinical Impression: Chest pain, Anemia Instructions: ED Anemia, Type Not Specified (Adult), ED Chest Pain, Uncertain Cause Prescriptions: No Action azithromycin 250 mg tablet 250 mg PO DAILY RF: 0 Daliresp 500 mcg tablet 500 mcg PO QHS RF: 0 Spiriva Respimat 2.5 mcg/actuation mist 2 inh INHALATION QAM RF: 0 Breo Ellipta 200-25 mcg/dose blister with device 1 inh INHALATION DAILY RF: 0 albuterol sulfate 2.5 mg /3 mL (0.083 %) solution for nebulization 2.5 mg continuous nebulization DAILY RF: 0 ergocalciferol (vitamin D2) 1,250 mcg (50,000 unit) capsule 1,250 mcg PO WE RF: 0 cyanocobalamin (vitamin B-12) 2,500 mcg tablet, sublingual 2,500 mcg PO QHS RF: 0 furosemide [Lasix] 40 mg tablet 40 mg PO BID Qty: 60 RF: 12 metformin 1,000 MG tablet 1,000 mg PO BIDCM RF: 0 albuterol sulfate 1 INHALER inhaler 1 puff INHALATION Q4H PRN PRN (Reason: Wheezing) Qty: 1 RF: 0 magnesium oxide 400 MG tablet 400 mg PO QHS RF: 0 escitalopram oxalate 10 mg tablet 10 mg PO DAILY RF: 0 primidone 50 mg tablet 50 mg PO BID RF: 0 atorvastatin 10 mg tablet 10 mg PO QHS RF: 0 levothyroxine 75 MCG tablet 75 mcg PO DAILY@0600 RF: 0 potassium chloride 20 mEq tablet extended release 20 meq PO DAILY RF: 0 amlodipine 10 mg tablet 10 mg PO DAILY RF: 0 metoprolol tartrate 50 mg tablet 50 mg PO BID Qty: 180 RF: 3 Referrals: MUNIR HOUGH [Other] - 3-5 Days Disposition Disposition: Home, Self Care
[2021-10-07] MEDS: Albuterol 2.5 MG/3 ML VIAL.NEB. INHALATION (10:02)
[2021-10-07] MEDS: Ipratropium/Albuterol Sulfate 3 ML AMPUL.NEB INHALATION (10:02)
[2021-10-07 10:08] LABS: Absolute Neutrophil Count 2.5 X10^3/uL (2.0-7.7); Basophil# 0.02 X10^3/uL; Basophil% 0.4 % (0-1); Eosinophil# 0.25 X10^3/uL; Eosinophils% 5.3 % (0-5); Hemoglobin 7.6 g/dL (12.0-15.0); Lymphocyte % 34.1 % (19-41); Mean Corp Hgb Conc 28.1 g/dL (32-36); Mean Corpuscular Volume 88.8 fL (81-99); Mean Platelet Vol. 9.3 fl (6.2-12.0); Monocyte# 0.28 X10^3/uL; NRBC Flagged by Analyzer 0 % (0-5); Neutrophil # 2.53 X10^3/uL (2.7-7.7); Platelet Count 191 K/mm3 (150-450); RBC Distribution Width CV 18.9 % (11.6-14.6); RBC Distribution Width SD 60.4 fl (35.1-43.9); Red Blood Count 3.04 M/mm3 (4.2-5.4); White Blood Count 4.7 K/mm3 (4.4-11.0)
--- NOTE | 2021-10-07 10:19 | RAD_ITS ---
STUDY: X-RAY CHEST REASON FOR EXAM: Female, 76 years old. chest pain, SOB X3 DAYS TECHNIQUE: Single AP portable view of the chest. COMPARISON: 07/27/2021 FINDINGS: The lungs are clear and expanded. There is no demonstrated pleural abnormality. Normal size heart. Normal mediastinum and amrit. Normal visualized pulmonary arteries. Normal visualized aortic arch and descending thoracic aorta. Normal visualized thoracic spine. Normal visualized ribs, clavicles, and shoulders. There is no demonstrated abnormality of the visualized soft tissue structures of the upper abdomen. RAD/Chest 1 View (Portable) IMPRESSION: Normal x-ray examination of the chest. Electronically Signed: Andre Yeboah MD at 11:06 EST Tel , Service support ,
[2021-10-07 10:26] LABS: Anion Gap 8 (5-15); BUN 25 mg/dL (7-18); BUN/Creat Ratio 19.4 RATIO (10-20); Calcium,Total 8.4 mg/dL (8.5-10.1); Chloride 104 mmol/L (98-107); Creatinine, Serum 1.29 mg/dL (0.55-1.02); EST Glomerular Filtration Rate 43 mL/min (>60); Est Glom Filt Rate - Afr Amer 52 mL/min (>60); Estimated Creatinine Clearance 34.92 ml/min; Glucose 131 mg/dL (74-106); Sodium Level 140 mmol/L (136-145); Troponin-I HS 8 pg/mL (3.0-54.0)
[2021-10-07] MEDS: Aspirin 81 MG TAB.CHEW 324 MG PO (10:31)
[2021-10-07 12:57] LABS: Troponin-I HS 8 pg/mL (3.0-54.0)
== END 2021-10-07 13:55 | disposition home or self-care (01) ==
PROVIDERS: Emergency Provider Emergency Medicine; Visit Provider Emergency Medicine
DX: R07.9 Chest pain, unspecified (principal); J44.9 Chronic obstructive pulmonary disease, unspecified; I27.21 Secondary pulmonary arterial hypertension; I48.91 Unspecified atrial fibrillation; E11.9 Type 2 diabetes mellitus without complications; D64.9 Anemia, unspecified; I10 Essential (primary) hypertension; E78.00 Pure hypercholesterolemia, unspecified; E03.9 Hypothyroidism, unspecified; Z99.81 Dependence on supplemental oxygen; E66.9 Obesity, unspecified; Z79.84 Long term (current) use of oral hypoglycemic drugs; Z79.899 Other long term (current) drug therapy; Z87.891 Personal history of nicotine dependence; Z86.73 Personal history of transient ischemic attack (TIA), and cerebral infarction without residual deficits; Z82.49 Family history of ischemic heart disease and other diseases of the circulatory system
CPT/HCPCS: 71045; 80048; 84484; 85025; 93005; 94640; 99251; 99285; A4216; G0463